=== PATIENT | female | born 1935 | race Caucasian/White ===

== ENCOUNTER → 2016-04-10 | Outpatient (CLI) | payer BC, OTHER ==
[~2016-04-10] MED LIST: ASCO1CAP3 PO; CALC600T33 PO; CHOL400T PO; CYCL0.052 OP; DILT240C75 PO; FOLI1TAB7 PO; GLYB1.257 PO; LEUC5TAB PO; LIPOZENE PO; LSN5 PO; MELA1TAB3 PO; OMEGCAP2 PO; PANT1TAB48 PO; PRED-301 PO; SIMV20TA5 PO; VITA1TAB4 PO
== END | disposition home or self-care (01) ==
LOC: C.LABMFLN 08:15
PROVIDERS: ATTEND Family Medicine
DX: E11.9 Type 2 diabetes mellitus without complications (principal)

== ENCOUNTER → 2016-04-30 | Outpatient (CLI) | payer BC, OTHER ==
[2016-04-30 13:19] LABS: BASO % 0.3 %; BASO ABS # 0.02 K/uL (0-0.2); COMPLETE YES; HEMATOCRIT 39.9 % (37-47); IG% 0.2 %; LYMPH % 17.1 %; MEAN CELL VOLUME 93.9 fL (80-100); MEAN CORPUSCULAR HEMOGLOBIN 31.3 pg (25-34); MEAN CORPUSCULAR HGB CONC 33.3 g/dl (32-36); MEAN PLATELET VOLUME 10.2 fL (7.4-10.4); MONO % 9.3 %; NEUT % 71.1 %; PLATELET COUNT 298 K/uL (130-400); RED BLOOD COUNT 4.25 M/uL (4.2-5.4); WHITE BLOOD COUNT 6.44 K/uL (4.8-10.8)
[2016-04-30 13:22] LABS: URINE APPEARANCE CLEAR (CLEAR); URINE BILIRUBIN NEG (NEG); URINE COLOR YELLOW; URINE EPITHELIAL CELL AUTO >30 /lpf (0-5); URINE NITRITE NEG (NEG); URINE PH 5.5 (4.5-7.5); URINE SPECIFIC GRAVITY 1.012 (1.000-1.030); UROBILINOGEN NEG (NEG)
[2016-04-30 13:36] LABS: ALT/SGPT 17 U/L (12-78); AMYLASE 27 U/L (25-115); AST/SGOT 14 U/L (15-37); BLOOD UREA NITROGEN 11 mg/dl (7-18); BUN/CREATININE RATIO 11.3 (10-20); CALCIUM 9.3 mg/dl (8.5-10.1); CARBON DIOXIDE 27 mmol/L (21-32); CHLORIDE 100 mmol/L (98-107); GLUCOSE 124 mg/dl (70-99); POTASSIUM 4.2 mmol/L (3.5-5.1); SODIUM 138 mmol/L (136-145)
[2016-04-30 13:40] LABS: MANUAL MICROSCOPIC REQUIRED? NO; REVIEW REQ? NO
[2016-04-30 13:44] LABS: ALB/GLOB RATIO 0.8 (0.9-2); ALKALINE PHOSPHATASE 76 U/L (45-117); CHOLESTEROL 158 mg/dl (0-200); CHOLESTEROL/HDL RATIO 2.1; HDL CHOLESTEROL 77 mg/dl; LDL CHOLESTEROL CALCULATED 60 mg/dl; TRIGLYCERIDES 107 mg/dl (0-150); VERY LOW DENSITY LIPOPROT CALC 21 mg/dl
[2016-04-30 13:48] LABS: RATIO 8.2 mcg/mg (0-30.0)
[2016-04-30 14:03] LABS: ESTIMATED AVERAGE GLUCOSE 180 mg/dl; HA1C FLAG Normal (Normal)
--- NOTE | 2016-05-07 11:05 | CODING QUERY MEDICAL NECESSITY ---
SUPPORTING DIAGNOSIS NEEDED A supporting diagnosis is required for the test/procedure performed on this patient in order for us to be reimbursed by the patient's insurance. Please provide a supporting diagnosis for the following test/procedure listed below next to the test name along with your signature. *If there is no additional diagnosis for this patient that would support the following test/procedure please document that below next to the test/procedure. Test(s)/Procedure(s) that require a supporting diagnosis: DOS 04/30 * Vitamin D DIAGNOSIS: Provider Signature: Date: Thank you Kirsty Edgar Health Information Management Once completed, please kindly fax back to [phone] For questions please call [phone]
== END | disposition home or self-care (01) ==
LOC: C.LABMFLN 07:34
PROVIDERS: ATTEND Family Medicine
DX: M85.80 Other specified disorders of bone density and structure, unspecified site (principal); E11.9 Type 2 diabetes mellitus without complications; E78.00 Pure hypercholesterolemia, unspecified; I10 Essential (primary) hypertension; R11.0 Nausea; R61 Generalized hyperhidrosis; M54.9 Dorsalgia, unspecified; E55.9 Vitamin D deficiency, unspecified

== ENCOUNTER → 2016-09-30 | Outpatient (CLI) | payer OTHER ==
[2016-09-30 13:53] LABS: ESTIMATED AVERAGE GLUCOSE 171 mg/dl; HA1C FLAG Normal (Normal)
[2016-09-30 13:54] LABS: HEMATOCRIT 40.3 % (37-47); MEAN CELL VOLUME 97.8 fL (80-100); MEAN CORPUSCULAR HEMOGLOBIN 32.3 pg (25-34); MEAN PLATELET VOLUME 10.6 fL (7.4-10.4); PLATELET COUNT 200 K/uL (130-400); RED BLOOD COUNT 4.12 M/uL (4.2-5.4); WHITE BLOOD COUNT 4.97 K/uL (4.8-10.8)
[2016-09-30 13:56] LABS: ALT/SGPT 29 U/L (12-78); BLOOD UREA NITROGEN 17 mg/dl (7-18); BUN/CREATININE RATIO 18.7 (10-20); CARBON DIOXIDE 30 mmol/L (21-32); CHLORIDE 105 mmol/L (98-107); CHOLESTEROL 198 mg/dl (0-200); CREATININE 0.92 mg/dl (0.60-1.20); GLUCOSE 110 mg/dl (70-99); POTASSIUM 4.5 mmol/L (3.5-5.1); SODIUM 140 mmol/L (136-145); TRIGLYCERIDES 104 mg/dl (0-150); VERY LOW DENSITY LIPOPROT CALC 21 mg/dl
[2016-09-30 13:59] LABS: ALKALINE PHOSPHATASE 74 U/L (45-117); AST/SGOT 18 U/L (15-37); HDL CHOLESTEROL 100 mg/dl; LDL CHOLESTEROL CALCULATED 77 mg/dl
[2016-09-30 14:17] LABS: RATIO 26.3 mcg/mg (0-30.0)
== END | disposition home or self-care (01) ==
LOC: C.LABMFLN 08:12
PROVIDERS: ATTEND Family Medicine
DX: R35.0 Frequency of micturition (principal); E11.9 Type 2 diabetes mellitus without complications; E78.00 Pure hypercholesterolemia, unspecified; M06.9 Rheumatoid arthritis, unspecified; Z51.81 Encounter for therapeutic drug level monitoring; Z79.899 Other long term (current) drug therapy

== ENCOUNTER → 2017-01-08 | Outpatient (CLI) | payer OTHER ==
[2017-01-08 13:08] LABS: BLOOD UREA NITROGEN 21 mg/dl (7-18); BUN/CREATININE RATIO 22.2 (10-20); CALCIUM 9.7 mg/dl (8.5-10.1); CARBON DIOXIDE 25 mmol/L (21-32); CHLORIDE 106 mmol/L (98-107); CREATININE 0.93 mg/dl (0.60-1.20); GLUCOSE 151 mg/dl (70-99); POTASSIUM 4.6 mmol/L (3.5-5.1); SODIUM 140 mmol/L (136-145)
[2017-01-08 13:30] LABS: ESTIMATED AVERAGE GLUCOSE 143 mg/dl; HA1C FLAG Normal (Normal)
== END | disposition home or self-care (01) ==
LOC: C.LABMFLN 07:14
PROVIDERS: ATTEND Family Medicine
DX: E11.9 Type 2 diabetes mellitus without complications (principal); E78.00 Pure hypercholesterolemia, unspecified; I10 Essential (primary) hypertension

== ENCOUNTER → 2017-04-14 | Outpatient (CLI) | payer OTHER ==
[~2017-04-14] VITALS: Ht 165.1 cm; Wt 93.4 kg
[~2017-04-14] MED LIST changes: +ASPI81TA28 PO; +CHOL1000 PO; +CYAN500T13 PO; -FOLI1TAB7 PO; +FOLI1TAB8 PO; +GLIM1TAB2 PO; +LIFI5DRO OPB; +METF1TAB53 PO; +METH2.5T PO; +PANT1TAB3 PO; -PANT1TAB48 PO
[2017-04-14 14:27] VITALS: Ht 165.1 cm; Wt 93.4 kg
[2017-04-14 15:24] LABS: BASO % 0.2 %; BASO ABS # 0.01 K/uL (0-0.2); EOS % 0.2 %; EOS ABS # 0.01 K/uL (0-0.5); HEMATOCRIT 34.9 % (37-47); HEMOGLOBIN 11.5 g/dL (12.0-16.0); IG# 0.01 K/uL (0.00-0.02); LYMPH % 10.9 %; LYMPH ABS # 0.61 K/uL (1.2-3.4); MEAN CELL VOLUME 96.4 fL (80-100); MEAN CORPUSCULAR HEMOGLOBIN 31.8 pg (25-34); MEAN PLATELET VOLUME 9.7 fL (7.4-10.4); MONO % 4.3 %; MONO ABS # 0.24 K/uL (0.11-0.59); NEUT % 84.2 %; NEUT ABS # 4.72 K/uL (1.4-6.5); PLATELET COUNT 192 K/uL (130-400); RED CELL DISTRIBUTION WIDTH CV 16.2 % (11.5-14.5); RED CELL DISTRIBUTION WIDTH SD 55.8 fL (36.4-46.3)
--- NOTE | 2017-04-14 15:30 | PAT Medication Instructions ---
Service Date Apr 14, 2017. Current Home Medication List Ascorbic Acid (Vitamin C), 1,000 MG PO QAM Aspirin (Aspirin Ec), 81 MG PO QAM Calcium Carbonate-Vitamin D (Calcium 600/Vitamin D), 1 TAB PO QAM Cholecalciferol (Vitamin D3), 1 TAB PO QPM Cyanocobalamin (Vitamin B12 500MCG), 2,500 MCG PO for PM Diltiazem Hcl Extended Release (Diltiazem Hcl), 240 MG PO QAM Folic Acid (Folvite), 1 MG PO QAM Glimepiride (Glimepiride), 1 TAB PO QAM Leucovorin Calcium (Leucovorin Calcium), 5 MG PO WK Lifitegrast (Xiidra), 1 DROP OPB BID Lisinopril (Lisinopril), 5 MG PO QAM Melatonin-Pyridoxine (Melatonin), 2 TABS PO HS PRN for PRN Metformin Hcl (Glucophage Ext Rel), 1,000 MG PO BID Methotrexate (Methotrexate), 5 TAB PO WEEKLY Macdoel-3 Fatty Acids (Fish Oil), 1 CAP PO QAM Pantoprazole (Protonix), 40 MG PO AM PRN for PRN Prednisone (Prednisone), 5 MG PO QAM Simvastatin (Zocor), 20 MG PO QPM Vitamin E (Vitamin E), 400 UNITS PO QPM Medication Instructions For Your Scheduled Surgery -Follow your prescriber's instructions: Leucovorin Calcium (Leucovorin Calcium), 5 MG PO WK Methotrexate (Methotrexate), 5 TAB PO WEEKLY - Hold the following medications 2 weeks prior to surgery: Macdoel-3 Fatty Acids (Fish Oil), 1 CAP PO QAM Vitamin E (Vitamin E), 400 UNITS PO QPM - Hold the following medications the morning of surgery: Ascorbic Acid (Vitamin C), 1,000 MG PO QAM Calcium Carbonate-Vitamin D (Calcium 600/Vitamin D), 1 TAB PO QAM Folic Acid (Folvite), 1 MG PO QAM Glimepiride (Glimepiride), 1 TAB PO QAM Metformin Hcl (Glucophage Ext Rel), 1,000 MG PO BID Lisinopril (Lisinopril), 5 MG PO QAM - Take the following medications the morning of surgery with a sip of water: Aspirin (Aspirin Ec), 81 MG PO QAM Diltiazem Hcl Extended Release (Diltiazem Hcl), 240 MG PO QAM Lifitegrast (Xiidra), 1 DROP OPB BID Pantoprazole (Protonix), 40 MG PO AM PRN for PRN (if needed) Prednisone (Prednisone), 5 MG PO QAM - Take the following medications as scheduled the night before surgery: Cholecalciferol (Vitamin D3), 1 TAB PO QPM Cyanocobalamin (Vitamin B12 500MCG), 2,500 MCG PO for PM Lifitegrast (Xiidra), 1 DROP OPB BID Melatonin-Pyridoxine (Melatonin), 2 TABS PO HS PRN for PRN (if needed) Metformin Hcl (Glucophage Ext Rel), 1,000 MG PO BID Simvastatin (Zocor), 20 MG PO QPM Pantoprazole (Protonix), 40 MG PO AM PRN for PRN (if needed) If you have any questions please call us at [phone] or [phone] or [phone]
[2017-04-14 16:12] LABS: ALBUMIN 3.4 gm/dl (3.4-5.0); CALCIUM 9.2 mg/dl (8.5-10.1); POTASSIUM 4.5 mmol/L (3.5-5.1)
--- NOTE | 2017-07-01 08:41 | CODING QUERY NO DIAGNOSIS ---
TREATMENT RENDERED WITHOUT A DIAGNOSIS : 37 To promote full compliance with coding requirements relating to patient care, physician participation is requested in all cases of insurance administrative assistant uncertainty. Please assist us with providing a diagnosis/symptom for the test(s) below: A diagnosis/symptom was not documented on your Order. A valid diagnosis/symptom is required to bill all insurances. Please remember that we are unable to code a diagnosis of rule out, probable, possible, questionable, or suspected. Tests that require a diagnosis: DOS: 04/14/17 * CBC WITH AUTO DIFFER DIAGNOSIS: * PARTIAL RENAL PROFILE DIAGNOSIS: * PTT DIAGNOSIS: * PROTHROMBIN TIME PRO DIAGNOSIS: * ALBUMIN DIAGNOSIS: * HEMOGLOBIN A1C DIAGNOSIS: * UA CLEAN CATCH CULTURE DIAGNOSIS: Provider Signature: Date: Thank you Amy Sanz Health Information Management Once completed, please kindly fax back to [phone] For questions please call [phone]
== END | disposition home or self-care (01) ==
LOC: C.LAB 07:00 → EDSTATUS 05-13 11:30
PROVIDERS: ATTEND Orthopaedic Surgery Sports Medicine
DX: Z01.818 Encounter for other preprocedural examination (principal)

== ENCOUNTER → 2017-04-14 | Outpatient (CLI) | payer OTHER ==
[2017-04-14 13:49] LABS: HEMOGLOBIN A1C 7.9 % (4.5-5.6)
[2017-04-14 14:23] LABS: ALBUMIN 3.4 gm/dl (3.4-5.0); ALT/SGPT 26 U/L (12-78); BLOOD UREA NITROGEN 14 mg/dl (7-18); CALCIUM 9.2 mg/dl (8.5-10.1); CARBON DIOXIDE 29 mmol/L (21-32); CHOLESTEROL 177 mg/dl (0-200); CREATININE 0.82 mg/dl (0.60-1.20); GLUCOSE 108 mg/dl (70-99); SODIUM 140 mmol/L (136-145)
[2017-04-14 14:25] LABS: ALKALINE PHOSPHATASE 57 U/L (45-117); AST/SGOT 16 U/L (15-37); LDL CHOLESTEROL CALCULATED 80 mg/dl; TOTAL PROTEIN 6.7 gm/dl (6.4-8.2)
== END | disposition home or self-care (01) ==
LOC: C.LABMFLN 07:14
PROVIDERS: ATTEND Family Medicine
DX: E11.9 Type 2 diabetes mellitus without complications (principal); E78.00 Pure hypercholesterolemia, unspecified; I10 Essential (primary) hypertension

== ENCOUNTER → 2017-04-22 | Outpatient (CLI) | payer OTHER ==
[~2017-04-22] MED LIST changes: -CHOL400T PO; -CYCL0.052 OP; -GLYB1.257 PO; -LIPOZENE PO
== END | disposition home or self-care (01) ==
LOC: C.LABMFLN 07:14
PROVIDERS: ATTEND Physician Assistant
DX: Z00.8 Encounter for other general examination (principal)

== ENCOUNTER 2020-12-18 12:06 | Inpatient (IN) ==
[2020-12-18] MEDS ORDERED: SODIUM CHLORIDE 0.9% 1000ML 1,000 ML IV SCH (12:30)
--- NOTE | 2020-12-18 12:47 | XRay Report ---
XR chest 1V portable CLINICAL HISTORY: SEPSIS TECHNIQUE: Single frontal radiograph of the chest was obtained. Comparison: None available at the time of this dictation. FINDINGS: No lines and tubes are seen. Calcified aortic knob is seen. The lungs are clear. No evidence of pleur al effusion or pneumothorax. IMPRESSION: No acute chest disease. ACT 112: Negative or not required by law. Electronically signed by: Davin Grant M.D. 12/18/2020 12:46 PM
[2020-12-18 13:05] LABS: Basophils # (auto) 0.01 K/uL (0-0.2); Basophils % (auto) 0.1 %; Eosinophils # (auto) 0.01 K/uL (0-0.5); Eosinophils % (auto) 0.1 %; Hematocrit (blood only) 40.8 % (37-47); Hemoglobin 14.1 g/dL (12.0-16.0); Immature Granulocytes # (auto) 0.05 K/uL (0.00-0.02); Immature Granulocytes % (auto) 0.4 %; Lymphocytes # (auto) 1.12 K/uL (1.2-3.4); Lymphocytes % (auto) 8.4 %; Mean Corpuscular Hemoglobin 31.3 pg (25-34); Mean Corpuscular Hgb Conc 34.6 g/dL (32-36); Mean Corpuscular Volume 90.7 fL (80-100); Mean Platelet Volume 11.3 fL (7.4-10.4); Monocytes # (auto) 1.02 K/uL (0.11-0.59); Monocytes % (auto) 7.7 %; Neutrophils # (auto) 11.09 K/uL (1.4-6.5); Neutrophils % (auto) 83.3 %; Platelet Count 318 K/uL (130-400); RDW Coefficient of Variation 15.6 % (11.5-14.5); RDW Standard Deviation 51.5 fL (36.4-46.3)
[2020-12-18 13:15] LABS: Partial Thromboplastin Ratio 0.8; Partial Thromboplastin Time 21.4 Seconds (21.0-31.0)
[2020-12-18 13:27] LABS: Alanine Aminotransferase 23 U/L (12-78); Aspartate Aminotransferase 10 U/L (15-37); BUN Creatinine Ratio 33.2 (10-20); Blood Urea Nitrogen 40 mg/dl (7-18); Calcium 9.2 mg/dl (8.5-10.1); Carbon Dioxide 23 mmol/L (21-32); Chloride 97 mmol/L (98-107); Est GFR (African American) 47.9 ml/min; Est GFR (Non-African American) 41.3 ml/min; Glucose 346 mg/dl (70-99); Magnesium 2.2 mg/dl (1.8-2.4); Potassium 4.5 mmol/L (3.5-5.1); Sodium 131 mmol/L (136-145)
--- NOTE | 2020-12-18 13:31 | Emergency Department Note ---
History of Present Illness General Chief complaint: Weakness Stated complaint: WEAKNESS/CONFUSION/REFERRED BY Time Seen by Provider: 12/18/20 12:21 Source: patient and family (Daughter at bedside) History of Present Illness Provider complaint: Weakness confusion Onset (ago): week(s) 1 Associated symptoms: + confusion, + fever/chills, + malaise and + weakness; no chest pain, no cough, no headaches, no nausea/vomiting or no shortness of breath 85-year-old female presents emergency department with daughter at bedside for weakness and confusion. Patient's daughter reports her symptoms are gone for last week. Patient's daughter states that she is concerned that the patient cannot take care of herself at home and they went to go see their PCP at [facility] practice and were referred to the emergency department. The daughter states that the patient is weak on her feet. The patient denies any recent fal ls. Patient was recently admitted to [facility] for Covid. Home Medications Medication Instructions Recorded Confirmed Type blood sugar diagnostic (OneTouch #50 ea 08/13/18 12/18/20 Rx Ultra Blue Test Strip) cyanocobalamin (vitamin B-12) 500 500 mcg PO DAILY #90 tab 08/13/18 12/18/20 Rx mcg tablet methotrexate sodium 2.5 mg tablet 12.5 mg PO WEEKLY #60 tab 08/13/18 12/18/20 Rx vitamin E succinate 268 mg (400 400 units PO DAILY #90 tab 08/13/18 12/18/20 Rx unit) tablet aspirin 81 mg tablet 81 mg PO DAILY tab 11/16/18 12/18/20 History omega-3 acid ethyl esters 1 gram 1 cap PO DAILY cap 11/16/18 12/18/20 History capsule cane, single pronged #1 ea 11/17/18 12/18/20 Rx blood-glucose meter (OneTouch #1 ea 12/07/18 12/18/20 Rx Ultra2 Meter) conjugated estrogens 0.625 mg/gram 1 appln PV DAILY #30 gm 06/22/19 12/18/20 Rx vaginal cream (Premarin) leucovorin calcium 5 mg tablet 10 mg PO WEEKLY #24 tab 09/22/19 12/18/20 Rx lisinopril 5 mg tablet 5 mg PO DAILY #90 tab 12/08/19 12/18/20 Rx metformin 1,000 mg tablet 1,000 mg PO .COMPLEX #180 tab 02/23/20 12/18/20 Rx mirabegron 25 mg tablet,extended 25 mg PO DAILY #90 tab 05/03/20 12/18/20 Rx release 24 hr (Myrbetriq) prednisone 5 mg tablet 5 mg PO DAILY #90 tab 06/08/20 12/18/20 Rx ascorbate calcium (vitamin C) 500 500 mg PO DAILY #30 tab 06/18/20 12/18/20 Rx mg tablet diltiazem HCl 240 mg 240 mg PO DAILY #90 cap 06/22/20 12/18/20 Rx capsule,extended release 24 hr hydrocodone 5 mg-acetaminophen 325 1 tab PO Q6H PRN #100 tab 09/13/20 12/18/20 Rx mg tablet simvastatin 20 mg tablet 20 mg PO DAILY #90 tab 09/13/20 12/18/20 Rx folic acid 1 mg tablet 1 mg PO DAILY #90 tab 11/12/20 12/18/20 Rx glimepiride 4 mg tablet 4 mg PO DAILY #90 tab 11/12/20 12/18/20 Rx calcium carbonate 500 mg calcium 500 mg PO DAILY 12/18/20 12/18/20 History (1,250 mg) tablet (Calcium 500) denosumab 60 mg/mL subcutaneous 60 mg SUBCUT .COMPLEX ml 12/18/20 12/18/20 History syringe (Prolia) diclofenac sodium 1 % topical gel 2 g TOPICAL TID PRN g 12/18/20 12/18/20 History (Arthritis Pain (diclofenac)) omega-3 fatty acids 1,000 mg 1,000 mg PO DAILY 12/18/20 12/18/20 History capsule (Fish Oil Concentrate) Allergies Allergy/AdvReac Type Severity Reaction Status Date / Time No Known Drug Allergies Allergy Verified 12/18/20 09:32 Past Med/Surg History Medical History Chronic low back pain Chronic steroid use COVID-19 virus infection Dyslipidemia Dyspnea on exertion Fatigue 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 therapy Pneumonia due to COVID-19 virus Psoriatic arthropathy Rheumatoid arthritis Shingles Surgical History H/O breast surgery H/O lumpectomy H/O nasal septoplasty History of appendectomy History of back surgery History of cataract surgery History of foot surgery History of tubal ligation Hx of cholecystectomy Status post repair of nerve Family History Daughter Diabetes Father Diabetes Mother Hypertension Arthritis Brother Diabetes Uncle Colorectal cancer Denies family history of Ovarian cancer Prostate cancer Myocardial infarction Breast cancer Social History Smoking Status: Former smoker Age Started Using Tobacco: 24; Age Quit Using Tobacco: 52; packs per day: 1; Years Smoked: 28; Second Hand Exposure: Yes; Hx Alcohol Use: No Hx Substance Use: No (Patient is using Hydrocodone-Acetaminophen) Preferred Language: Hebrew Communication Ability: Effective Visual Impairment: Limited Hearing Ability: Normal Child Protective Investigator Required: No marital status: / Current Living Situation: Alone Current Living Situation Comment: [facility] current occupational status: retired Feels Safe at Home: Yes Childhood Exposure to Second-Hand Smoke: No caffeine: Yes (coffee) during the past year weight has: remained stable Dental Care, Regularly: No Physical Activity Frequency: Does not Exercise Seatbelt Use: always Sunscreen Use: No Do you think of yourself as: straight/heterosexual Review of Systems A total of 10 systems reviewed and were otherwise negative Physical Exam Vital Signs Vital Signs - 24 hr 12/18/20 12:07 12/18/20 12:13 12/18/20 12:22 Temperature 36.4 C L Temperature Source Temporal Artery Scan Pulse Rate 83 65 Pulse Rate [Apical] Respiratory Rate 18 24 Blood Pressure 132/64 Blood Pressure [Right Arm] Blood Pressure Mean 86 Blood Pressure Mean [Right Arm] Pulse Oximetry 96 98 Oxygen Delivery Method Room Air Room Air Room Air Sepsis Recent Fever Within 48 Hours No Sepsis New/Unexplained Change in Mental Status No Sepsis Action Taken by Nursing No Action Required 12/18/20 13:45 12/18/20 13:48 12/18/20 14:45 Temperature Temperature Source Pulse Rate Pulse Rate [Apical] 67 95 H 65 Respiratory Rate 24 24 21 Blood Pressure Blood Pressure [Right Arm] 150/66 H 150/66 H 143/83 H Blood Pressure Mean Blood Pressure Mean [Right Arm] 94 94 103 Pulse Oximetry 97 97 96 Oxygen Delivery Method Room Air Room Air Room Air Sepsis Recent Fever Within 48 Hours Sepsis New/Unexplained Change in Mental Status Sepsis Action Taken by Nursing Physical Exam GENERAL: She is oriented to person, place, and time. She appears well-developed and well-nourished. She does not appear distressed. HENT: Exam performed. -Head: Normocephalic and atraumatic. -Right Ear: External ear normal. No mastoid tenderness. -Left Ear: External ear normal. No mastoid tenderness. -Mouth/Throat: The oropharynx is clear and moist. No trismus in the jaw. No dental abscesses or uvula swelling. No oropharyngeal exudate or tonsillar abscesses. EYES: Conjunctivae and EOM are normal. Pupils are equal, round, and reactive to light. Right eye exhibits no discharge. Left eye exhibits no discharge. No scleral icterus. NECK: Normal range of motion. Neck supple. No JVD present. No spinous process tenderness present. No carotid bruit present. No rigidity. No tracheal deviation and normal range of motion present. No Brudzinski's sign and no Kernig's sign noted. CV: Normal rate, regular rhythm, normal heart sounds and intact distal pulses. There is no peripheral edema. Palpable radial pulses bue. PULM/CHEST: Effort normal and breath sounds normal. No respiratory distress. No stridor. She has no wheezes. She has no rales. -Chest Wall: She exhibits no tenderness. ABD: The abdomen is soft. Bowel sounds are normal. She has no distension. No mass is present. There is no tenderness. There is no rebound, no guarding, no Buitrago's sign and no tenderness at McBurney's point. Rovsig negative MUSC/SKEL: Normal range of motion. There is no peripheral edema, tenderness or deformity. LYMPH: No cervical adenopathy. NEURO: She is alert and oriented to person, place, and time. She has normal strength. No cranial nerve deficit or sensory deficit. GCS eye subscore is 4. GCS verbal subscore is 5. GCS motor subscore is 6. Cerebellar tests wnl. SKIN: Skin is warm and dry. She is not diaphoretic. PSYCH: She has a normal mood and affect. Behavior is normal. Judgment and thought content normal. Course Course 1221: The patient was evaluated in room B8. A complete history and physical exam was performed Cardiac monitoring: An order was placed for continuous cardiac monitoring. The monitor shows a rate of 80 with sinus rhythm 1531: Vital signs stable. Labs are lactic acid of 3.9. Urinalysis does appear to be infected. Patient treated with 30 cc/kg bolus based off her ideal body weight. [facility] Imaging shows no pulmonary embolus and CT of the head is within normal limits. Dr. Marie's team notified. Administered Medications Sodium Chloride (Nss) 500 mls @ 125 mls/hr IV .Q4H JOLENE Stop: 01/17/21 13:44 Last Admin: 12/18/20 15:28 Dose: 125 mls/hr Documented by: [id number] Discontinued Medications Sodium Chloride (Nss 1000ml) 1,000 mls @ 999 mls/hr IV .Q1H1M ONE Stop: 12/18/20 14:32 Last Admin: 12/18/20 13:43 Dose: 999 mls/hr Documented by: [id number] Ceftriaxone Sodium (Rocephin) 1,000 mg in 50 mls @ 100 mls/hr IV NOW STA Stop: 12/18/20 14:44 Last Admin: 12/18/20 14:32 Dose: 100 mls/hr Documented by: [id number] Ioversol (Optiray 320 125ml) 120 ml IV ONCE ONE Stop: 12/18/20 15:00 Last Admin: 12/18/20 14:52 Dose: 120 ml Documented by: [id number] Medical Decision Making Laboratory Data Result diagrams: 12/18/20 12:49 12/18/20 12:49 Lab Results 12/18/20 12/18/20 12/18/20 Range/Units 12:49 12:49 12:49 WBC 13.30 H (4.8-10.8) K/uL RBC 4.50 (4.2-5.4) M/uL Hgb 14.1 (12.0-16.0) g/dL Hct 40.8 (37-47) % MCV 90.7 (80-100) fL MCH 31.3 (25-34) pg MCHC 34.6 (32-36) g/dL RDW Std Deviation 51.5 H (36.4-46.3) fL RDW Coeff of Jeff 15.6 H (11.5-14.5) % Plt Count 318 (130-400) K/uL MPV 11.3 H (7.4-10.4) fL Immature Gran % (Auto) 0.4 % Neut % (Auto) 83.3 % Lymph % (Auto) 8.4 % [place] % (Auto) 7.7 % Eos % (Auto) 0.1 % Baso % (Auto) 0.1 % Neut # (Auto) 11.09 H (1.4-6.5) K/uL Lymph # (Auto) 1.12 L (1.2-3.4) K/uL [place] # (Auto) 1.02 H (0.11-0.59) K/uL Eos # (Auto) 0.01 (0-0.5) K/uL Baso # (Auto) 0.01 (0-0.2) K/uL Immature Gran # (Auto) 0.05 H (0.00-0.02) K/uL PT (9.0-12.0) Seconds INR (0.9-1.1) APTT (21.0-31.0) Seconds PTT Ratio VBG pH (7.36-7.41) VBG pCO2 (38-50) mmHg VBG pO2 mmHg VBG HCO3 mmol/L VBG O2 Saturation % VBG Base Excess mEq/L Barometric Pressure mm/Hg Sodium 131 L (136-145) mmol/L Potassium 4.5 (3.5-5.1) mmol/L Chloride 97 L (98-107) mmol/L Carbon Dioxide 23 (21-32) mmol/L Anion Gap 11.0 (3-11) BUN 40 H (7-18) mg/dl Creatinine 1.21 H (0.6-1.2) mg/dl Est Cr Clr Drug Dosing Not Reportable Est GFR ( Amer) 47.9 ml/min Est GFR (Non-Af Amer) 41.3 ml/min BUN/Creatinine Ratio 33.2 H (10-20) Glucose 346 H* (70-99) mg/dl Lactate (0.4-2.0) mmol/L Calcium 9.2 (8.5-10.1) mg/dl Magnesium 2.2 (1.8-2.4) mg/dl Total Bilirubin 0.9 (0.2-1) mg/dl AST 10 L (15-37) U/L ALT 23 (12-78) U/L Alkaline Phosphatase 65 (45-117) U/L Troponin I < 0.015 (0-0.045) ng/ml Total Protein 7.0 (6.4-8.2) gm/dl Albumin 3.0 L (3.4-5.0) gm/dl Globulin 4.0 (2.5-4.0) gm/dl Albumin/Globulin Ratio 0.8 L (0.9-2) Beta-Hydroxybutyric Acd 0.97 (0.2-2.81) mg/dl Procalcitonin < 0.05 (0-0.5) ng/ml Urine Color Urine Appearance (Clear) Urine pH (4.5-7.5) Ur Specific [place] (1.000-1.030) Urine Protein (Negative) Urine Glucose (UA) (Negative) Urine Ketones (Negative) Urine Blood (Negative) Urine Nitrite (Negative) Urine Bilirubin (Negative) Urine Urobilinogen (Negative) Ur Leukocyte Esterase (Negative) Urine WBC (Auto) (0-5) /hpf Urine RBC (Auto) (0-4) /hpf U Hyaline Cast (Auto) (0-5) /lpf U Epithel Cells (Auto) (0-5) /lpf Urine Bacteria (Auto) (Negative) Urine Yeast 12/18/20 12/18/20 12/18/20 Range/Units 12:49 12:49 13:16 WBC (4.8-10.8) K/uL RBC (4.2-5.4) M/uL Hgb (12.0-16.0) g/dL Hct (37-47) % MCV (80-100) fL MCH (25-34) pg MCHC (32-36) g/dL RDW Std Deviation (36.4-46.3) fL RDW Coeff of Jeff (11.5-14.5) % Plt Count (130-400) K/uL MPV (7.4-10.4) fL Immature Gran % (Auto) % Neut % (Auto) % Lymph % (Auto) % [place] % (Auto) % Eos % (Auto) % Baso % (Auto) % Neut # (Auto) (1.4-6.5) K/uL Lymph # (Auto) (1.2-3.4) K/uL [place] # (Auto) (0.11-0.59) K/uL Eos # (Auto) (0-0.5) K/uL Baso # (Auto) (0-0.2) K/uL Immature Gran # (Auto) (0.00-0.02) K/uL PT 10.0 (9.0-12.0) Seconds INR 1.0 (0.9-1.1) APTT 21.4 (21.0-31.0) Seconds PTT Ratio 0.8 VBG pH 7.43 H (7.36-7.41) VBG pCO2 38 (38-50) mmHg VBG pO2 33 mmHg VBG HCO3 25 mmol/L VBG O2 Saturation 63.0 % VBG Base Excess 0.4 mEq/L Barometric Pressure 734.3 mm/Hg Sodium (136-145) mmol/L Potassium (3.5-5.1) mmol/L Chloride (98-107) mmol/L Carbon Dioxide (21-32) mmol/L Anion Gap (3-11) BUN (7-18) mg/dl Creatinine (0.6-1.2) mg/dl Est Cr Clr Drug Dosing Est GFR ( Amer) ml/min Est GFR (Non-Af Amer) ml/min BUN/Creatinine Ratio (10-20) Glucose (70-99) mg/dl Lactate 3.9 H* (0.4-2.0) mmol/L Calcium (8.5-10.1) mg/dl Magnesium (1.8-2.4) mg/dl Total Bilirubin (0.2-1) mg/dl AST (15-37) U/L ALT (12-78) U/L Alkaline Phosphatase (45-117) U/L Troponin I (0-0.045) ng/ml Total Protein (6.4-8.2) gm/dl Albumin (3.4-5.0) gm/dl Globulin (2.5-4.0) gm/dl Albumin/Globulin Ratio (0.9-2) Beta-Hydroxybutyric Acd (0.2-2.81) mg/dl Procalcitonin (0-0.5) ng/ml Urine Color Urine Appearance (Clear) Urine pH (4.5-7.5) Ur Specific [place] (1.000-1.030) Urine Protein (Negative) Urine Glucose (UA) (Negative) Urine Ketones (Negative) Urine Blood (Negative) Urine Nitrite (Negative) Urine Bilirubin (Negative) Urine Urobilinogen (Negative) Ur Leukocyte Esterase (Negative) Urine WBC (Auto) (0-5) /hpf Urine RBC (Auto) (0-4) /hpf U Hyaline Cast (Auto) (0-5) /lpf U Epithel Cells (Auto) (0-5) /lpf Urine Bacteria (Auto) (Negative) Urine Yeast 12/18/20 Range/Units 13:17 WBC (4.8-10.8) K/uL RBC (4.2-5.4) M/uL Hgb (12.0-16.0) g/dL Hct (37-47) % MCV (80-100) fL MCH (25-34) pg MCHC (32-36) g/dL RDW Std Deviation (36.4-46.3) fL RDW Coeff of Jeff (11.5-14.5) % Plt Count (130-400) K/uL MPV (7.4-10.4) fL Immature Gran % (Auto) % Neut % (Auto) % Lymph % (Auto) % [place] % (Auto) % Eos % (Auto) % Baso % (Auto) % Neut # (Auto) (1.4-6.5) K/uL Lymph # (Auto) (1.2-3.4) K/uL [place] # (Auto) (0.11-0.59) K/uL Eos # (Auto) (0-0.5) K/uL Baso # (Auto) (0-0.2) K/uL Immature Gran # (Auto) (0.00-0.02) K/uL PT (9.0-12.0) Seconds INR (0.9-1.1) APTT (21.0-31.0) Seconds PTT Ratio VBG pH (7.36-7.41) VBG pCO2 (38-50) mmHg VBG pO2 mmHg VBG HCO3 mmol/L VBG O2 Saturation % VBG Base Excess mEq/L Barometric Pressure mm/Hg Sodium (136-145) mmol/L Potassium (3.5-5.1) mmol/L Chloride (98-107) mmol/L Carbon Dioxide (21-32) mmol/L Anion Gap (3-11) BUN (7-18) mg/dl Creatinine (0.6-1.2) mg/dl Est Cr Clr Drug Dosing Est GFR ( Amer) ml/min Est GFR (Non-Af Amer) ml/min BUN/Creatinine Ratio (10-20) Glucose (70-99) mg/dl Lactate (0.4-2.0) mmol/L Calcium (8.5-10.1) mg/dl Magnesium (1.8-2.4) mg/dl Total Bilirubin (0.2-1) mg/dl AST (15-37) U/L ALT (12-78) U/L Alkaline Phosphatase (45-117) U/L Troponin I (0-0.045) ng/ml Total Protein (6.4-8.2) gm/dl Albumin (3.4-5.0) gm/dl Globulin (2.5-4.0) gm/dl Albumin/Globulin Ratio (0.9-2) Beta-Hydroxybutyric Acd (0.2-2.81) mg/dl Procalcitonin (0-0.5) ng/ml Urine Color Yellow Urine Appearance Cloudy A (Clear) Urine pH 5.0 (4.5-7.5) Ur Specific [place] 1.024 (1.000-1.030) Urine Protein Trace H (Negative) Urine Glucose (UA) 2+ H (Negative) Urine Ketones Negative (Negative) Urine Blood Trace H (Negative) Urine Nitrite Negative (Negative) Urine Bilirubin Negative (Negative) Urine Urobilinogen Negative (Negative) Ur Leukocyte Esterase 2+ H (Negative) Urine WBC (Auto) >30 H (0-5) /hpf Urine RBC (Auto) 5-10 H (0-4) /hpf U Hyaline Cast (Auto) 1-5 (0-5) /lpf U Epithel Cells (Auto) >30 H (0-5) /lpf Urine Bacteria (Auto) 1+ H (Negative) Urine Yeast Not Reportable Imaging Data Radiologist's Impression: Chest CTA 12/18/20 12:22 CT ANGIOGRAM OF THE CHEST CLINICAL HISTORY: Dyspnea with exertion. Covid. COMPARISON STUDY: Chest x-ray dated 12/18/2020. TECHNIQUE: Following the IV administration of 120 cc of Optiray 320, CT angiogram of the chest was performed from the upper abdomen to the thoracic inlet utilizing the pulmonary embolus protocol. Images are reviewed in the axial, sagittal, and coronal planes. 3-D MIPS images are created and assessed. IV contrast was administered without complication. A dose lowering technique was utilized adhering to the principles of ALARA. CT DOSE: 1293.44 mGy.cm FINDINGS: Thyroid: The thyroid gland is markedly enlarged and heterogeneous consistent with goiter. Thoracic aorta: There is atherosclerotic calcification of the thoracic aorta, which is normal in caliber and demonstrates standard 3-vessel arch anatomy. No dissection is seen. Pulmonary vasculature: The main pulmonary arteries are dilated suggesting pulmonary artery hypertension. There are no filling defects identified in main, lobar, or proximal segmental pulmonary branches to suggest pulmonary embolus. Evaluation of the peripheral branches is significantly compromised by motion artifact. Heart: The heart is enlarged and without pericardial effusion. The coronary arteries are densely calcified. Lungs and pleural spaces: Evaluation of the lung parenchyma is significantly degraded by motion artifact. Mild patchy groundglass consolidation is seen throughout both lungs. The trachea and central airways are clear. No pleural effusion is identified. There are scattered calcified granulomas. Mediastinum: There are scattered subcentimeter mediastinal lymph nodes. Lesly: Clear. Axillae: There is no axillary lymphadenopathy. Upper abdomen: The gallbladder is surgically absent. There is a small to moderate hiatal hernia. Skeletal structures: The skeletal structures are osteopenic. Spondylotic change is noted throughout the thoracic spine. There is a chronic compression deformity of L1. No lytic or blastic bony lesions are seen. IMPRESSION: 1. Motion compromised examination. 2. There is no evidence of central pulmonary embolus in the main, lobar, or proximal segmental pulmonary arteries. 3. Cardiomegaly. 4. Multifocal groundglass consolidation is seen throughout both lungs, consistent with the reported history of a viral pneumonia. Radiographic follow- up to resolution is recommended. 5. Thyroid goiter. 6. Additional findings as above. ACT 112: Negative or not required by law. Electronically signed by: Ponce La M.D. 12/18/2020 3:21 PM Chest X-Ray 12/18/20 12:22 XR chest 1V portable CLINICAL HISTORY: SEPSIS TECHNIQUE: Single frontal radiograph of the chest was obtained. Comparison: None available at the time of this dictation. FINDINGS: No lines and tubes are seen. Calcified aortic knob is seen. The lungs are clear. No evidence of pleural effusion or pneumothorax. IMPRESSION: No acute chest disease. ACT 112: Negative or not required by law. Electronically signed by: Davin Grant M.D. 12/18/2020 12:[address] 12/18/20 12:23 CT SCAN OF THE BRAIN WITHOUT IV CONTRAST CLINICAL HISTORY: Generalized weakness. COMPARISON STUDY: No priors. TECHNIQUE: Unenhanced axial CT scan of the brain is performed from the vertex to the skull base. A dose lowering technique was utilized adhering to the principles of ALARA. FINDINGS: Brain parenchyma: There are age-related involutional changes noting moderate subcortical and periventricular microangiopathic change. There is no hemorrhage, mass effect, or evidence of acute territorial ischemia by CT criteria. Rebollar- white matter differentiation is preserved. No extra-axial fluid collection is seen. Ventricles, sulci, cisterns: Prominent secondary to involutional change. Intracranial vasculature: There is atherosclerotic calcification of the cavernous carotid and vertebral arteries. Calvarium: Unremarkable. Sinuses and mastoids: The visualized paranasal sinuses are clear. The mastoid air cells are well pneumatized. Orbits: The bony orbits are grossly intact. There are bilateral ocular lens implants. IMPRESSION: There is no hemorrhage, mass effect, or evidence of acute territorial ischemia by CT criteria. ACT 112: Negative or not required by law. Electronically signed by: Ponce La M.D. 12/18/2020 3:00 PM ECG Data Indication: + weakness Rate (beats per minute): 66 Rhythm: + normal sinus ECG Intervals/blocks: + Normal QRS, + Normal [place] and + Normal QT-c ECG ST segments: + Normal ST segments ECG Findings: + LVH MDM Narrative Vital signs stable. Labs are lactic acid of 3.9. Urinalysis does appear to be infected. Patient treated with 30 cc/kg bolus based off her ideal body weight. [facility] Imaging shows no pulmonary embolus and CT of the head is within normal limits. Dr. Marie's team notified. Impression & Plan Acute UTI, Sepsis Discharge Plan Visit Data Chief Complaint: Weakness Stated Complaint: WEAKNESS/CONFUSION/REFERRED BY ED Provider: Asif Senior Discharge Problem: Acute UTI, Sepsis Patient Disposition: Admitted As Inpatient Forms Stand Alone Forms: My [facility] Prescriptions Prescriptions: No Action (DME) blood-glucose meter [OneTouch Ultra2 Meter] [facility] See Dose Instructions .ROUTE .MEDSUPPLY Qty: 1 RF: 0 lisinopril 5 mg tablet 5 mg PO DAILY Qty: 90 RF: 3 metformin 1,000 mg tablet 1,000 mg PO .COMPLEX Qty: 180 RF: 3 Myrbetriq 25 mg tablet extended release 24 hr 25 mg PO DAILY Qty: 90 RF: 3 prednisone 5 mg tablet 5 mg PO DAILY Qty: 90 RF: 3 diltiazem HCl 240 mg capsule,extended release 24hr 240 mg PO DAILY Qty: 90 RF: 3 folic acid 1 mg tablet 1 mg PO DAILY Qty: 90 RF: 3 glimepiride 4 mg tablet 4 mg PO DAILY Qty: 90 RF: 3 ascorbate calcium (vitamin C) 500 mg tablet 500 mg PO DAILY Qty: 30 RF: 0 calcium carbonate [Calcium 500] 500 mg calcium (1,250 mg) tablet 500 mg PO DAILY RF: 0 Prolia 60 mg/mL syringe 60 mg subcut .COMPLEX RF: 0 diclofenac sodium [Arthritis Pain (diclofenac)] 1 % gel 2 g topical TID PRNRF: 0 omega-3 fatty acids [Fish Oil Concentrate] 1,000 mg capsule 1,000 mg PO DAILY RF: 0 (DME) cane, single pronged Qty: 1 RF: 0 Premarin 0.625 mg/gram cream 1 appln PV DAILY Qty: 30 RF: 11 hydrocodone-acetaminophen 5-325 mg tablet 1 tab PO Q6H PRN (Reason: pain) Qty: 100 RF: 0 simvastatin 20 mg tablet 20 mg PO DAILY Qty: 90 RF: 3 leucovorin calcium 5 mg tablet 10 mg PO WEEKLY Qty: 24 RF: 3 (DME) OneTouch Ultra Blue Test Strip strip See Dose Instructions .ROUTE .MEDSUPPLY Qty: 50 RF: 5 cyanocobalamin (vitamin B-12) 500 mcg tablet 500 mcg PO DAILY Qty: 90 RF: 3 methotrexate sodium 2.5 mg tablet 12.5 mg PO WEEKLY Qty: 60 RF: 3 vitamin E succinate 400 unit tablet 400 units PO DAILY Qty: 90 RF: 3 aspirin 81 mg tablet 81 mg PO DAILY RF: 0 omega-3 acid ethyl esters 1 gram capsule 1 cap PO DAILY RF: 0 Referrals Referrals: Ponce Winter MD [Primary Care Provider] -
[2020-12-18] MEDS ORDERED: SODIUM CHLORIDE 0.9% 1000ML 1,000 ML IV ONE (13:32)
[2020-12-18] MEDS ORDERED: SODIUM CHLORIDE 0.9% 1000ML 500 ML IV ONE (13:32)
[2020-12-18 13:37] LABS: Albumin Globulin Ratio 0.8 (0.9-2); Alkaline Phosphatase 65 U/L (45-117); Bilirubin,Total 0.9 mg/dl (0.2-1); Troponin I < 0.015 ng/ml (0-0.045)
[2020-12-18 13:40] LABS: Base Excess VBG 0.4 mEq/L; pH VBG 7.43 (7.36-7.41)
[2020-12-18 13:44] LABS: Appearance Urine Cloudy (Clear); Bacteria Urine Automated 1+ (Negative); Bilirubin Urine Negative (Negative); Blood Urine Trace (Negative); Color Urine Yellow; Epithelial Cell Urine Auto >30 /lpf (0-5); Glucose Urine UA 2+ (Negative); Ketones Urine Negative (Negative); Leukocyte Esterase Urine 2+ (Negative); Nitrite Urine Negative (Negative); Protein Urine Trace (Negative); Specific Gravity Urine 1.024 (1.000-1.030); Urobilinogen Urine Negative (Negative); WBC Urine Automated >30 /hpf (0-5)
[2020-12-18 13:52] LABS: Beta-Hydroxybutyrate 0.97 mg/dl (0.2-2.81)
[2020-12-18] MEDS ORDERED: cefTRIAXone SODIUM 1,000 MG/50 ML BAG IV STA (14:15)
[2020-12-18] MEDS ORDERED: OPTIRAY 320 125ml IV ONE (14:59)
--- NOTE | 2020-12-18 15:01 | CT Scan Report ---
CT SCAN OF THE BRAIN WITHOUT IV CONTRAST CLINICAL HISTORY: Generalized weakness. COMPARISON STUDY: No priors. TECHNIQUE: Unenhanced axial CT scan of the brain is performed from the vertex to the skull base. A do se lowering technique was utilized adhering to the principles of ALARA. FINDINGS: Brain parenchyma: There are age-related involutional changes noting moderate subcortical and periven tricular microangiopathic change. There is no hemorrhage, mass effect, or evidence of acute territori al ischemia by CT criteria. Rebollar-white matter differentiation is preserved. No extra-axial fluid checo ection is seen. Ventricles, sulci, cisterns: Prominent secondary to involutional change. Intracranial vasculature: There is atherosclerotic calcification of the cavernous carotid and vertebr al arteries. Calvarium: Unremarkable. Sinuses and mastoids: The visualized paranasal sinuses are clear. The mastoid air cells are well pneu matized. Orbits: The bony orbits are grossly intact. There are bilateral ocular lens implants. IMPRESSION: There is no hemorrhage, mass effect, or evidence of acute territorial ischemia by CT jos de anda. ACT 112: Negative or not required by law. Electronically signed by: Ponce La M.D. 12/18/2020 3:00 PM
--- NOTE | 2020-12-18 15:22 | CT Scan Report ---
CT ANGIOGRAM OF THE CHEST CLINICAL HISTORY: Dyspnea with exertion. Covid. COMPARISON STUDY: Chest x-ray dated 12/18/2020. TECHNIQUE: Following the IV administration of 120 cc of Optiray 320, CT angiogram of the chest was pe rformed from the upper abdomen to the thoracic inlet utilizing the pulmonary embolus protocol. Images are reviewed in the axial, sagittal, and coronal planes. 3-D MIPS images are created and assessed. I V contrast was administered without complication. A dose lowering technique was utilized adhering to the principles of ALARA. CT DOSE: 1293.44 mGy.cm FINDINGS: Thyroid: The thyroid gland is markedly enlarged and heterogeneous consistent with goiter. Thoracic aorta: There is atherosclerotic calcification of the thoracic aorta, which is normal in lew nitesh and demonstrates standard 3-vessel arch anatomy. No dissection is seen. Pulmonary vasculature: The main pulmonary arteries are dilated suggesting pulmonary artery hypertensi on. There are no filling defects identified in main, lobar, or proximal segmental pulmonary branches to suggest pulmonary embolus. Evaluation of the peripheral branches is significantly compromised by m otion artifact. Heart: The heart is enlarged and without pericardial effusion. The coronary arteries are densely calc ified. Lungs and pleural spaces: Evaluation of the lung parenchyma is significantly degraded by motion artif act. Mild patchy groundglass consolidation is seen throughout both lungs. The trachea and central air ways are clear. No pleural effusion is identified. There are scattered calcified granulomas. Mediastinum: There are scattered subcentimeter mediastinal lymph nodes. Lesly: Clear. Axillae: There is no axillary lymphadenopathy. Upper abdomen: The gallbladder is surgically absent. There is a small to moderate hiatal hernia. Skeletal structures: The skeletal structures are osteopenic. Spondylotic change is noted throughout t he thoracic spine. There is a chronic compression deformity of L1. No lytic or blastic bony lesions a re seen. IMPRESSION: 1. Motion compromised examination. 2. There is no evidence of central pulmonary embolus in the main, lobar, or proximal segmental pulmon wanda arteries. 3. Cardiomegaly. 4. Multifocal groundglass consolidation is seen throughout both lungs, consistent with the reported h istory of a viral pneumonia. Radiographic follow-up to resolution is recommended. 5. Thyroid goiter. 6. Additional findings as above. ACT 112: Negative or not required by law. Electronically signed by: Ponce La M.D. 12/18/2020 3:21 PM
[2020-12-18] MEDS: SODIUM CHLORIDE 0.9% 500 ML IV SCH ×2 (15:28→20:04)
--- NOTE | 2020-12-18 18:31 | History & Physical Report ---
Date of Service December 18, 2020 Assessment & Plan (1) Acute UTI: Plan: 85yo Female PMH COVID positive 12/07 previously vaccinated, DM2 HTN HLD RA presents to hospital with altered mental status likely secondary to UTI. Acute UTI -UA +1 bacteria +2 leukocyte Esterase -Urine culture pending -blood culture pending -Lactate 3.7 -received 1000mg ceftriaxone in ED, continue ceftriaxone 2 days -admit to obs -continue to trend cbc bmp Pneumonia due to COVID-19 -PCR COVID positive -ordered isolation precautions -sat 95% on room air Confusion -continue to monitor, likely 2/2 to UTI and COVID -CT head no acute hemorrhage ischemia -CTA chest = cardiomegaly, multifocal groundglass consolidation in both lungs consistent with viral PNA, thyroid goiter, no central pulmonary embolism -CXR no acute chest disease Ambulatory Dysfunction -order fall precautions -order PT/OT -likely need placement for rehab DM2 -glucose 346, may be part due to home steroids and medication noncompliance secondary to confusion -hold home medication -continue insulin 5U Lantus BID -correction factor 45 Novolog, carb ratio 15 Rheumatoid Arthritis -continue home medication methotrexate, prednisone Chronic Low Back Pain -continue home medication hydrocodone acetominophen HTN -continue diltiazem, lisinopril HLD -continue simvastatin Overactive Bladder -continue mirabegron GERD -continue protonix FENa: card consistent Code Status: full DVT PPX: heparin 5000U 2x daily PT/OT: ordered (2) Pneumonia due to COVID-19 virus: (3) Confusion: (4) Ambulatory dysfunction: (5) Type 2 diabetes mellitus with peripheral neuropathy: (6) Rheumatoid arthritis: (7) Chronic low back pain: History of Present Illness Chief Complaint: Altered Mental Status Primary Care Provider: Ponce Winter MD 85yo Female PMH COVID positive 12/07 previously vaccinated, DM2 HTN HLD RA presents to hospital with altered mental status, sent here by her PCP Dr. Winter. Per patient she understands she was hospitalized last week for COVID pneumonia, states the steroids she was given have not helped her, states she is septic and has fluid in her lungs but she will feel better now that she is in the hospital. Patient denies any fever, chills, nausea, vomitting, SOB, urinary incontinence or pain, she has a good appetite. Patient states she lives alone in a [facility] and requires no assistance, ambulates with a cane. While laying in bed, patient decided to sit on the side of the bed to eat dinner and had extreme difficulty moving her legs to position herself and to remain seated upright. Patient blamed the bed for being unstable and states she does not have any difficulty walking, states her last fall was 2 months ago. Per patient's daughter, the patient fell out of bed 12/05 and was not able to get up, was brought to [facility] and diagnosed with PNA, she was discharged home on antibiotics. On 12/07 the patient began having delirium and was brought back to the ER where she was diagnosed with COVID, started on steroids, she did not require oxygen, was discharged on 12/09 with home steroids. Patient's family checks in on her multiple times per day, state her confusion has gotten worse, she is unable to manage or take her medication regularly, still has great difficulty walking by herself and gets easily short of breath, has been sleeping more often, and may not be drinking water as regularly, though they note no change in appetite. They state patient has occasional urinary incontinence at baseline. Patient's daughter believes her symptoms may be due to a UTI as her current confusion is similar to her previous UTI. The family scheduled an appointment with Dr. Winter to evaluate patient for confusion, after which she was sent here. Allergies Allergy/AdvReac Type Severity Reaction Status Date / Time No Known Drug Allergies Allergy Verified 12/18/20 16:00 Home Medications Medication Instructions Recorded Confirmed Type blood sugar diagnostic (SaborstudioTouch #50 ea 08/13/18 12/18/20 Rx Ultra Blue Test Strip) cyanocobalamin (vitamin B-12) 500 500 mcg PO DAILY #90 tab 08/13/18 12/18/20 Rx mcg tablet methotrexate sodium 2.5 mg tablet 12.5 mg PO WEEKLY #60 tab 08/13/18 12/18/20 Rx vitamin E succinate 268 mg (400 400 units PO DAILY #90 tab 08/13/18 12/18/20 Rx unit) tablet cane, single pronged #1 ea 11/17/18 12/18/20 Rx blood-glucose meter (SaborstudioTouch #1 ea 12/07/18 12/18/20 Rx Ultra2 Meter) lisinopril 5 mg tablet 5 mg PO DAILY #90 tab 12/08/19 12/18/20 Rx mirabegron 25 mg tablet,extended 25 mg PO DAILY #90 tab 05/03/20 12/18/20 Rx release 24 hr (Myrbetriq) prednisone 5 mg tablet 5 mg PO DAILY #90 tab 06/08/20 12/18/20 Rx ascorbate calcium (vitamin C) 500 500 mg PO DAILY #30 tab 06/18/20 12/18/20 Rx mg tablet diltiazem HCl 240 mg 240 mg PO DAILY #90 cap 06/22/20 12/18/20 Rx capsule,extended release 24 hr hydrocodone 5 mg-acetaminophen 325 1 tab PO Q6H PRN #100 tab 09/13/20 12/18/20 Rx mg tablet simvastatin 20 mg tablet 20 mg PO DAILY #90 tab 09/13/20 12/18/20 Rx folic acid 1 mg tablet 1 mg PO DAILY #90 tab 11/12/20 12/18/20 Rx glimepiride 4 mg tablet 4 mg PO DAILY #90 tab 11/12/20 12/18/20 Rx aspirin 81 mg tablet,delayed 81 mg PO DAILY 12/18/20 12/18/20 History release (Aspirin Low Dose) calcium phosphate 600 mg-vit D3 1 tab PO DAILY 12/18/20 12/18/20 History 500 unit-magnesium oxide 50 mg tablet cholecalciferol (vitamin D3) 25 25 mcg PO DAILY 12/18/20 12/18/20 History mcg (1,000 unit) capsule (Vitamin D3) conjugated estrogens 0.625 mg/gram 1 applic PV DAILY 12/18/20 12/18/20 History vaginal cream (Premarin) denosumab 60 mg/mL subcutaneous 60 mg SUBCUT .COMPLEX ml 12/18/20 12/18/20 History syringe (Prolia) diclofenac sodium 1 % topical gel 2 g TOPICAL TID PRN g 12/18/20 12/18/20 History (Arthritis Pain (diclofenac)) leucovorin calcium 5 mg tablet 5 mg PO WEEKLY 12/18/20 12/18/20 History lifitegrast 5 % eye drops in a 0 drp OPHTHALMIC (EYE) UD 12/18/20 12/18/20 History dropperette (Xiidra) metformin 1,000 mg tablet 1,000 mg PO BIDM 12/18/20 12/18/20 History omega-3 fatty acids 1,000 mg 1,000 mg PO DAILY 12/18/20 12/18/20 History capsule (Fish Oil Concentrate) pantoprazole 40 mg tablet,delayed 40 mg PO DAILY 12/18/20 12/18/20 History release (Protonix) Past Med/Surg History Medical History Chronic low back pain Chronic steroid use COVID-19 virus infection Dyslipidemia Dyspnea on exertion Fatigue 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 therapy Pneumonia due to COVID-19 virus Psoriatic arthropathy Rheumatoid arthritis Shingles Surgical History H/O breast surgery H/O lumpectomy H/O nasal septoplasty History of appendectomy History of back surgery History of cataract surgery History of foot surgery History of tubal ligation Hx of cholecystectomy Status post repair of nerve Family History Daughter Diabetes Father Diabetes Mother Hypertension Arthritis Brother Diabetes Uncle Colorectal cancer Denies family history of Ovarian cancer Prostate cancer Myocardial infarction Breast cancer Social History Smoking Status: Former smoker Age Started Using Tobacco: 24; Age Quit Using Tobacco: 52; packs per day: 1; Years Smoked: 28; Second Hand Exposure: No; Do You Dip or Chew Tobacco: No; Tobacco Cessation Education Requested by Patient: No Hx Alcohol Use: No Hx Substance Use: No Preferred Language: Irish Communication Ability: Effective Visual Impairment: Limited Hearing Ability: Normal Roll Inspector Required: No Beliefs That Will Affect Care: None marital status: / Current Living Situation: Alone Current Living Situation Comment: Lives in [facility] in [place]. current occupational status: retired Other Information That Helps Us Care for You: No Feels Safe at Home: Yes Safety Concerns: Feels Safe At This Time Childhood Exposure to Second-Hand Smoke: No caffeine: Yes (coffee) during the past year weight has: remained stable Dental Care, Regularly: No Physical Activity Frequency: Does not Exercise Seatbelt Use: always Sunscreen Use: No Do you think of yourself as: straight/heterosexual Assistive Devices: Cane, Denture - Upper, Denture - Lower and Glasses Assistive Devices Comment: Lower partial. Review of Systems Review of Systems: Negative fever chills Negative headache dizziness Negative chest pain palpitations SOB Negative nausea vomitting diarrhea constipation Negative numbness tingling rash swelling Physical Exam Physical Exam: General: Well appearing, age appropriate Heart: RRR, +S1 S2, no murmurs/gallops/rubs Lungs: cta b/l, no wheezes/rales/rhonchi Abd: soft, NT/ND, +BS Extremities: no swelling, no rashes, no clubbing/cyanosis HEENT: PERRLA, EOMI, normocephalic atraumatic Psych:euthymic affect, calm, cooperative Skin: warm, dry, intact Results & Data Results & Data ([facility]) Vital Signs (Past 12 Hours) Vital Signs Temp Pulse Pulse Resp BP BP Pulse Ox 12/18/20 16:39 70 18 119/83 95 12/18/20 14:45 65 21 143/83 H 96 12/18/20 13:48 95 H 24 150/66 H 97 12/18/20 13:45 67 24 150/66 H 97 12/18/20 12:22 65 24 98 12/18/20 12:13 36.4 C L 83 18 132/64 96 Laboratory Results Laboratory Results WBC 13.30 K/uL (4.8-10.8) H 12/18/20 12:49 RBC 4.50 M/uL (4.2-5.4) 12/18/20 12:49 Hgb 14.1 g/dL (12.0-16.0) 12/18/20 12:49 Hct 40.8 % (37-47) 12/18/20 12:49 MCV 90.7 fL (80-100) 12/18/20 12:49 MCH 31.3 pg (25-34) 12/18/20 12:49 MCHC 34.6 g/dL (32-36) 12/18/20 12:49 RDW Std Deviation 51.5 fL (36.4-46.3) H 12/18/20 12:49 RDW Coeff of Jeff 15.6 % (11.5-14.5) H 12/18/20 12:49 Plt Count 318 K/uL (130-400) 12/18/20 12:49 MPV 11.3 fL (7.4-10.4) H 12/18/20 12:49 Immature Gran % (Auto) 0.4 % 12/18/20 12:49 Neut % (Auto) 83.3 % 12/18/20 12:49 Lymph % (Auto) 8.4 % 12/18/20 12:49 Gregory % (Auto) 7.7 % 12/18/20 12:49 Eos % (Auto) 0.1 % 12/18/20 12:49 Baso % (Auto) 0.1 % 12/18/20 12:49 Neut # (Auto) 11.09 K/uL (1.4-6.5) H 12/18/20 12:49 Lymph # (Auto) 1.12 K/uL (1.2-3.4) L 12/18/20 12:49 Gregory # (Auto) 1.02 K/uL (0.11-0.59) H 12/18/20 12:49 Eos # (Auto) 0.01 K/uL (0-0.5) 12/18/20 12:49 Baso # (Auto) 0.01 K/uL (0-0.2) 12/18/20 12:49 Immature Gran # (Auto) 0.05 K/uL (0.00-0.02) H 12/18/20 12:49 PT 10.0 Seconds (9.0-12.0) 12/18/20 12:49 INR 1.0 (0.9-1.1) 12/18/20 12:49 APTT 21.4 Seconds (21.0-31.0) 12/18/20 12:49 PTT Ratio 0.8 12/18/20 12:49 VBG pH 7.43 (7.36-7.41) H 12/18/20 13:16 VBG pCO2 38 mmHg (38-50) 12/18/20 13:16 VBG pO2 33 mmHg 12/18/20 13:16 VBG HCO3 25 mmol/L 12/18/20 13:16 VBG O2 Saturation 63.0 % 12/18/20 13:16 VBG Base Excess 0.4 mEq/L 12/18/20 13:16 Barometric Pressure 734.3 mm/Hg 12/18/20 13:16 Sodium 131 mmol/L (136-145) L 12/18/20 12:49 Potassium 4.5 mmol/L (3.5-5.1) 12/18/20 12:49 Chloride 97 mmol/L (98-107) L 12/18/20 12:49 Carbon Dioxide 23 mmol/L (21-32) 12/18/20 12:49 Anion Gap 11.0 (3-11) 12/18/20 12:49 BUN 40 mg/dl (7-18) H 12/18/20 12:49 Creatinine 1.21 mg/dl (0.6-1.2) H 12/18/20 12:49 Est Cr Clr Drug Dosing Not Reportable 12/18/20 12:49 Est GFR ( Amer) 47.9 ml/min 12/18/20 12:49 Est GFR (Non-Af Amer) 41.3 ml/min 12/18/20 12:49 BUN/Creatinine Ratio 33.2 (10-20) H 12/18/20 12:49 Glucose 346 mg/dl (70-99) H* 12/18/20 12:49 Lactate 3.7 mmol/L (0.4-2.0) H* 12/18/20 15:23 Calcium 9.2 mg/dl (8.5-10.1) 12/18/20 12:49 Magnesium 2.2 mg/dl (1.8-2.4) 12/18/20 12:49 Total Bilirubin 0.9 mg/dl (0.2-1) 12/18/20 12:49 AST 10 U/L (15-37) L 12/18/20 12:49 ALT 23 U/L (12-78) 12/18/20 12:49 Alkaline Phosphatase 65 U/L (45-117) 12/18/20 12:49 Troponin I < 0.015 ng/ml (0-0.045) 12/18/20 12:49 Total Protein 7.0 gm/dl (6.4-8.2) 12/18/20 12:49 Albumin 3.0 gm/dl (3.4-5.0) L 12/18/20 12:49 Globulin 4.0 gm/dl (2.5-4.0) 12/18/20 12:49 Albumin/Globulin Ratio 0.8 (0.9-2) L 12/18/20 12:49 Beta-Hydroxybutyric Acd 0.97 mg/dl (0.2-2.81) 12/18/20 12:49 Procalcitonin < 0.05 ng/ml (0-0.5) 12/18/20 12:49 Urine Color Yellow 12/18/20 13:17 Urine Appearance Cloudy (Clear) A 12/18/20 13:17 Urine pH 5.0 (4.5-7.5) 12/18/20 13:17 Ur Specific [place] 1.024 (1.000-1.030) 12/18/20 13:17 Urine Protein Trace (Negative) H 12/18/20 13:17 Urine Glucose (UA) 2+ (Negative) H 12/18/20 13:17 Urine Ketones Negative (Negative) 12/18/20 13:17 Urine Blood Trace (Negative) H 12/18/20 13:17 Urine Nitrite Negative (Negative) 12/18/20 13:17 Urine Bilirubin Negative (Negative) 12/18/20 13:17 Urine Urobilinogen Negative (Negative) 12/18/20 13:17 Ur Leukocyte Esterase 2+ (Negative) H 12/18/20 13:17 Urine WBC (Auto) >30 /hpf (0-5) H 12/18/20 13:17 Urine RBC (Auto) 5-10 /hpf (0-4) H 12/18/20 13:17 U Hyaline Cast (Auto) 1-5 /lpf (0-5) 12/18/20 13:17 U Epithel Cells (Auto) >30 /lpf (0-5) H 12/18/20 13:17 Urine Bacteria (Auto) 1+ (Negative) H 12/18/20 13:17 Urine Yeast Not Reportable 12/18/20 13:17 COVID-19 Eval Order Covid19 at [facility] 12/18/20 16:11 SARS-CoV-2 (PCR) POSITIVE (Negative) A* 12/18/20 16:11 Impressions Chest CTA 12/18/20 12:22 CT ANGIOGRAM OF THE CHEST CLINICAL HISTORY: Dyspnea with exertion. Covid. COMPARISON STUDY: Chest x-ray dated 12/18/2020. TECHNIQUE: Following the IV administration of 120 cc of Optiray 320, CT ang iogram of the chest was performed from the upper abdomen to the thoracic inlet utilizing the pulmonary embolus protocol. Images are reviewed in the axial, sagittal, and coronal planes. 3-D MIPS images are created and assessed. IV contrast was administered without complication. A dose lowering technique was utilized adhering to the principles of ALARA. CT DOSE: 1293.44 mGy.cm FINDINGS: Thyroid: The thyroid gland is markedly enlarged and heterogeneous consistent with goiter. Thoracic aorta: There is atherosclerotic calcification of the thoracic aorta, which is normal in caliber and demonstrates standard 3-vessel arch anatomy. No dissection is seen. Pulmonary vasculature: The main pulmonary arteries are dilated suggesting pulmonary artery hypertension. There are no filling defects identified in main, lobar, or proximal segmental pulmonary branches to suggest pulmonary embolus. Evaluation of the peripheral branches is significantly compromised by motion artifact. Heart: The heart is enlarged and without pericardial effusion. The coronary arteries are densely calcified. Lungs and pleural spaces: Evaluation of the lung parenchyma is significantly degraded by motion artifact. Mild patchy groundglass consolidation is seen throughout both lungs. The trachea and central airways are clear. No pleural effusion is identified. There are scattered calcified granulomas. Mediastinum: There are scattered subcentimeter mediastinal lymph nodes. Lesly: Clear. Axillae: There is no axillary lymphadenopathy. Upper abdomen: The gallbladder is surgically absent. There is a small to moderate hiatal hernia. Skeletal structures: The skeletal structures are osteopenic. Spondylotic change is noted throughout the thoracic spine. There is a chronic compression deformity of L1. No lytic or blastic bony lesions are seen. IMPRESSION: 1. Motion compromised examination. 2. There is no evidence of central pulmonary embolus in the main, lobar, or proximal segmental pulmonary arteries. 3. Cardiomegaly. 4. Multifocal groundglass consolidation is seen throughout both lungs, consistent with the reported history of a viral pneumonia. Radiographic follow- up to resolution is recommended. 5. Thyroid goiter. 6. Additional findings as above. ACT 112: Negative or not required by law. Electronically signed by: Ponce La M.D. 12/18/2020 3:21 PM Chest X-Ray 12/18/20 12:22 XR chest 1V portable CLINICAL HISTORY: SEPSIS TECHNIQUE: Single frontal radiograph of the chest was obtained. Comparison: None available at the time of this dictation. FINDINGS: No lines and tubes are seen. Calcified aortic knob is seen. The lungs are clear. No evidence of pleural effusion or pneumothorax. IMPRESSION: No acute chest disease. ACT 112: Negative or not required by law. Electronically signed by: Davin Grant M.D. 12/18/2020 12:[address] 12/18/20 12:23 CT SCAN OF THE BRAIN WITHOUT IV CONTRAST CLINICAL HISTORY: Generalized weakness. COMPARISON STUDY: No priors. TECHNIQUE: Unenhanced axial CT scan of the brain is performed from the vertex to the skull base. A dose lowering technique was utilized adhering to the principles of ALARA. FINDINGS: Brain parenchyma: There are age-related involutional changes noting moderate subcortical and periventricular microangiopathic change. There is no hemorrhage, mass effect, or evidence of acute territorial ischemia by CT criteria. Rebollar- white matter differentiation is preserved. No extra-axial fluid collection is seen. Ventricles, sulci, cisterns: Prominent secondary to involutional change. Intracranial vasculature: There is atherosclerotic calcification of the cavernous carotid and vertebral arteries. Calvarium: Unremarkable. Sinuses and mastoids: The visualized paranasal sinuses are clear. The mastoid air cells are well pneumatized. Orbits: The bony orbits are grossly intact. There are bilateral ocular lens implants. IMPRESSION: There is no hemorrhage, mass effect, or evidence of acute territorial ischemia by CT criteria. ACT 112: Negative or not required by law. Electronically signed by: Ponce La M.D. 12/18/2020 3:00 PM Medications Administered Current Inpatient Medications Sodium Chloride (Nss 1000ml) 1,000 mls @ 80 mls/hr IV .[id number] JOLENE Stop: 01/17/21 12:29 Sodium Chloride (Nss) 500 mls @ 125 mls/hr IV .Q4H JOLENE Stop: 01/17/21 13:44 Last Admin: 12/18/20 15:28 Dose: 125 mls/hr Documented by: Code Status & VTE Plan Code Status Full VTE Prophylaxis Plan VTE Prophylaxis will be ordered: Yes Supervising Physician Co-Signing Physician Notes I personally saw and examined the patient. I verified all philip points and agree with resident physician Dr Malika Yoo ([id number]) with the following exceptions and/or additions: 85 year old fully vaccinated female with recent COVID-19 pneumonia diagnosed Dec 07 presents with worsening fatigue and confusion O/E No acute distress, well nourished, A&Ox3, HS 1+2, no murmurs, Chest CTAB, Abdomen SNT, BS normal, no lateralizing neurological exam. A/P COVID-19 pneumonia - already had dexamethasone course for this, no further treatment required as on room air. Suspect her confusion and ambulatory dysfunction are mainly related to this however. Possible UTI - although only symptom of this would be confusion, Given diabetes and worsening mental status although most likely related to COVID would opt to treat pending urine cultures Elevated lactate - does not appear to be related to sepsis, patient is not acidotic, will hold metformin as a possible cause of this and treat her diabetes with insulin as above Resident Activity Tracking Resident Involvement: Resident Care Provided Care Provided: Adult Hospital Medicine
[2020-12-18] MEDS ORDERED: DICLOFENAC SOD 1% GEL 100 GM TUBE EXT PRN (20:02)
[2020-12-18] MEDS ORDERED: HYDROCODONE/ACETAMOPHEN 5/325MG TAB PO PRN (20:02)
[2020-12-18] MEDS: INSULIN ASPART 100 UNITS/ML 3 ML PEN SC SCH (21:26)
[2020-12-18] MEDS: HEPARIN SOD 5,000 UNIT/0.5 ML VIAL SQ SCH (21:27)
[2020-12-18] MEDS: INSULIN GLARGINE SOLOSTAR 100 UNITS/ML 3 ML PEN SC SCH (21:28)
[2020-12-18] MEDS ORDERED: Nursing to Pharmacy Communication SCH (21:45)
[2020-12-18] MEDS: MIRABEGRON ER 25 MG TAB PO SCH (21:57)
[2020-12-19 06:18] LABS: Eosinophils # (auto) 0.02 K/uL (0-0.5); Eosinophils % (auto) 0.2 %; Hematocrit (blood only) 38.7 % (37-47); Immature Granulocytes # (auto) 0.05 K/uL (0.00-0.02); Immature Granulocytes % (auto) 0.6 %; Lymphocytes # (auto) 1.15 K/uL (1.2-3.4); Lymphocytes % (auto) 13.5 %; Mean Corpuscular Hemoglobin 31.4 pg (25-34); Mean Corpuscular Hgb Conc 33.6 g/dL (32-36); Mean Corpuscular Volume 93.5 fL (80-100); Mean Platelet Volume 11.3 fL (7.4-10.4); Monocytes # (auto) 0.69 K/uL (0.11-0.59); Monocytes % (auto) 8.1 %; Neutrophils # (auto) 6.63 K/uL (1.4-6.5); Neutrophils % (auto) 77.6 %; Platelet Count 233 K/uL (130-400); RDW Coefficient of Variation 15.5 % (11.5-14.5); RDW Standard Deviation 52.9 fL (36.4-46.3); Red Blood Count 4.14 M/uL (4.2-5.4); White Blood Count 8.54 K/uL (4.8-10.8)
[2020-12-19 06:51] LABS: BUN Creatinine Ratio 31.7 (10-20); Calcium 8.4 mg/dl (8.5-10.1); Creatinine Clr Calc Pharmacy 54.3 ml/min; Est GFR (Non-African American) 68.2 ml/min
[2020-12-19] MEDS: CHOLECALCIFEROL 1,000 UNITS 25 MCG TAB PO SCH (07:35)
[2020-12-19] MEDS: ASCORBIC ACID 500 MG TAB PO SCH (07:35)
[2020-12-19] MEDS: CYANOCOBALAMIN 500 MCG TABLET (VITAMIN B-12) PO SCH (07:35)
[2020-12-19] MEDS: dilTIAZem HCL 240 MG CAPCR PO SCH (07:35)
[2020-12-19] MEDS: PANTOprazole 40 MG TAB PO SCH (07:35)
[2020-12-19] MEDS: predniSONE 5 MG TAB PO SCH (07:36)
[2020-12-19] MEDS: FOLIC ACID 1 MG TAB PO SCH (07:36)
[2020-12-19] MEDS: SIMVASTATIN 20 MG TAB PO SCH (07:36)
[2020-12-19] MEDS: lisinopril 5 MG TAB PO SCH (07:37)
[2020-12-19] MEDS: OMEGA-3 (PURIFIED FISH OIL) 1 GM CAP PO SCH (07:37)
[2020-12-19] MEDS: TOCOPHERYL, DL-ALPHA 400 UNITS 180 MG CAP PO SCH (07:37)
[2020-12-19] MEDS: HEPARIN SOD 5,000 UNIT/0.5 ML VIAL SQ SCH ×2 (07:38→21:20)
[2020-12-19] MEDS ORDERED: [UNRECOGNIZED DRUG - OTHER] PO SCH (09:00)
[2020-12-19] MEDS ORDERED: CALCIUM PO SCH (09:00)
[2020-12-19] MEDS ORDERED: SIMVASTATIN 20 MG TAB PO SCH (09:00)
[2020-12-19] MEDS ORDERED: MIRABEGRON ER 25 MG TAB PO SCH (09:00)
[2020-12-19] MEDS: INSULIN GLARGINE SOLOSTAR 100 UNITS/ML 3 ML PEN SC SCH ×2 (09:31→21:18)
[2020-12-19] MEDS: INSULIN ASPART 100 UNITS/ML 3 ML PEN SC SCH ×4 (09:32→21:18)
--- NOTE | 2020-12-19 11:03 | Billing Data ---
Date of Service December 18, 2020 Coding Level of Care Code INT OBSERVATION CARE 52M LVL 2
--- NOTE | 2020-12-19 11:27 | Hospitalist Progress Note ---
Date of Service December 19, 2020 Assessment & Plan (1) Acute UTI: Plan: 85yo Female PMH COVID positive 12/07 previously vaccinated, DM2 HTN HLD RA presents to hospital with altered mental status likely secondary to UTI. Acute UTI -UA +1 bacteria +2 leukocyte Esterase -Urine culture: preliminary is Pseudomonas species, will change to Cefepime q12, stop Rocephin -blood culture: no growth - change to full admission, too weak to go home, needs therapy and more IV fl uids BEATA, dehydration - received 3 liters of fluid in the ED, eating and drinking better, not great - give 500cc more fluid today - Cr improved to 0.8, making urine Pneumonia due to COVID-19 -PCR COVID positive -initial positive test was 12/07 at [facility] -no hypoxia, no need for dexamethasone can come out of isolation on Thursday 12/21 Confusion -likely due to dehydration, BEATA, UTI, recent COVID infection, much better today, ate breakfast, oriented -CT head no acute hemorrhage ischemia -CTA chest = cardiomegaly, multifocal groundglass consolidation in both lungs consistent with viral PNA, thyroid goiter, no central pulmonary embolism -CXR no acute chest disease Ambulatory Dysfunction -order fall precautions -order PT/OT -likely need placement for rehab DM2 -glucose 346, may be part due to home steroids and medication noncompliance secondary to confusion -hold home medication -continue insulin 5U Lantus BID -correction factor 45 Novolog, carb ratio 15 sugars much better today Rheumatoid Arthritis -continue home medication methotrexate, prednisone Chronic Low Back Pain -continue home medication hydrocodone acetominophen HTN -continue diltiazem, lisinopril HLD -continue simvastatin Overactive Bladder -continue mirabegron GERD -continue protonix FENa: card consistent Code Status: full DVT PPX: heparin 5000U 2x daily PT/OT: ordered (2) Pneumonia due to COVID-19 virus: (3) Confusion: (4) Ambulatory dysfunction: (5) Type 2 diabetes mellitus with peripheral neuropathy: (6) Rheumatoid arthritis: (7) Chronic low back pain: Admission and Anticipated Discharge Date Admission Date: December 18, 2020 Subjective patient doing better, she is eating better this morning she is alert and oriented Cr is improved, she is stable on room air, no fever urine culture growing Pseudomonas species, no growth on blood culture spoke with her daughter, she confirms she had COVID on 12/07, was admitted to [facility], had been sick for a few days prior she was discharged to home without need for oxygen she was weak, not eating or drinking well, not able to get around apartment Review of Systems Review of Systems: All systems reviewed & are unremarkable except as noted in Subjective Physical Exam Physical Exam: General: well developed, well nourished, elderly female, no distress Neck: supple, trachea midline, normal thyroid Lungs: clear to auscultation bilaterally, normal respiratory effort, no accessory muscle use, no distress Heart: regular S1 and S2, no murmur, peripheral pulses normal, capillary refill normal, no edema Abdomen: soft, NT, ND, + BS, no hepatomegaly, normal to percussion Extremities: normal in appearance, no cyanosis, no petechiae, strength is diminished Neuro: awake, cooperative, moves all extremities, no focal motor deficits, CN II-XII intact, sensation in extremities intact, normal speech Skin: warm, dry, no rash, normal turgor Psych: Awake, alert oriented x 3, euthymic affect Results & Data Results & Data ([facility]) Vital Signs (Past 12 Hours) Vital Signs Temp Pulse Resp BP Pulse Ox 12/19/20 07:28 36.4 C L 65 16 118/66 95 12/19/20 00:17 36.4 C L 72 14 135/63 94 Laboratory Results Laboratory Results - last 24 hr 12/18/20 12/18/20 12/18/20 12:49 12:49 12:49 WBC 13.30 H RBC 4.50 Hgb 14.1 Hct 40.8 MCV 90.7 MCH 31.3 MCHC 34.6 RDW Std Deviation 51.5 H RDW Coeff of Jeff 15.6 H Plt Count 318 MPV 11.3 H Immature Gran % (Auto) 0.4 Neut % (Auto) 83.3 Lymph % (Auto) 8.4 [place]hin % (Auto) 7.7 Eos % (Auto) 0.1 Baso % (Auto) 0.1 Neut # (Auto) 11.09 H Lymph # (Auto) 1.12 L [place]hin # (Auto) 1.02 H Eos # (Auto) 0.01 Baso # (Auto) 0.01 Immature Gran # (Auto) 0.05 H PT INR APTT PTT Ratio VBG pH VBG pCO2 VBG pO2 VBG HCO3 VBG O2 Saturation VBG Base Excess Barometric Pressure Sodium 131 L Potassium 4.5 Chloride 97 L Carbon Dioxide 23 Anion Gap 11.0 BUN 40 H Creatinine 1.21 H Est Cr Clr Drug Dosing Not Reportable Est GFR ( Amer) 47.9 Est GFR (Non-Af Amer) 41.3 BUN/Creatinine Ratio 33.2 H Glucose 346 H* POC Glucose Lactate Calcium 9.2 Magnesium 2.2 Total Bilirubin 0.9 AST 10 L ALT 23 Alkaline Phosphatase 65 Troponin I < 0.015 Total Protein 7.0 Albumin 3.0 L Globulin 4.0 Albumin/Globulin Ratio 0.8 L Beta-Hydroxybutyric Acd 0.97 Procalcitonin < 0.05 Urine Color Urine Appearance Urine pH Ur Specific Darrow Urine Protein Urine Glucose (UA) Urine Ketones Urine Blood Urine Nitrite Urine Bilirubin Urine Urobilinogen Ur Leukocyte Esterase Urine WBC (Auto) Urine RBC (Auto) U Hyaline Cast (Auto) U Epithel Cells (Auto) Urine Bacteria (Auto) Urine Yeast COVID-19 Eval Order SARS-CoV-2 (PCR) 12/18/20 12/18/20 12/18/20 12:49 12:49 13:16 WBC RBC Hgb Hct MCV MCH MCHC RDW Std Deviation RDW Coeff of Jeff Plt Count MPV Immature Gran % (Auto) Neut % (Auto) Lymph % (Auto) [place] % (Auto) Eos % (Auto) Baso % (Auto) Neut # (Auto) Lymph # (Auto) [place] # (Auto) Eos # (Auto) Baso # (Auto) Immature Gran # (Auto) PT 10.0 INR 1.0 APTT 21.4 PTT Ratio 0.8 VBG pH 7.43 H VBG pCO2 38 VBG pO2 33 VBG HCO3 25 VBG O2 Saturation 63.0 VBG Base Excess 0.4 Barometric Pressure 734.3 Sodium Potassium Chloride Carbon Dioxide Anion Gap BUN Creatinine Est Cr Clr Drug Dosing Est GFR ( Amer) Est GFR (Non-Af Amer) BUN/Creatinine Ratio Glucose POC Glucose Lactate 3.9 H* Calcium Magnesium Total Bilirubin AST ALT Alkaline Phosphatase Troponin I Total Protein Albumin Globulin Albumin/Globulin Ratio Beta-Hydroxybutyric Acd Procalcitonin Urine Color Urine Appearance Urine pH Ur Specific Darrow Urine Protein Urine Glucose (UA) Urine Ketones Urine Blood Urine Nitrite Urine Bilirubin Urine Urobilinogen Ur Leukocyte Esterase Urine WBC (Auto) Urine RBC (Auto) U Hyaline Cast (Auto) U Epithel Cells (Auto) Urine Bacteria (Auto) Urine Yeast COVID-19 Eval Order SARS-CoV-2 (PCR) 12/18/20 12/18/20 12/18/20 13:17 15:23 16:11 WBC RBC Hgb Hct MCV MCH MCHC RDW Std Deviation RDW Coeff of Jeff Plt Count MPV Immature Gran % (Auto) Neut % (Auto) Lymph % (Auto) [place] % (Auto) Eos % (Auto) Baso % (Auto) Neut # (Auto) Lymph # (Auto) [place] # (Auto) Eos # (Auto) Baso # (Auto) Immature Gran # (Auto) PT INR APTT PTT Ratio VBG pH VBG pCO2 VBG pO2 VBG HCO3 VBG O2 Saturation VBG Base Excess Barometric Pressure Sodium Potassium Chloride Carbon Dioxide Anion Gap BUN Creatinine Est Cr Clr Drug Dosing Est GFR ( Amer) Est GFR (Non-Af Amer) BUN/Creatinine Ratio Glucose POC Glucose Lactate 3.7 H* Calcium Magnesium Total Bilirubin AST ALT Alkaline Phosphatase Troponin I Total Protein Albumin Globulin Albumin/Globulin Ratio Beta-Hydroxybutyric Acd Procalcitonin Urine Color Yellow Urine Appearance Cloudy A Urine pH 5.0 Ur Specific Darrow 1.024 Urine Protein Trace H Urine Glucose (UA) 2+ H Urine Ketones Negative Urine Blood Trace H Urine Nitrite Negative Urine Bilirubin Negative Urine Urobilinogen Negative Ur Leukocyte Esterase 2+ H Urine WBC (Auto) >30 H Urine RBC (Auto) 5-10 H U Hyaline Cast (Auto) 1-5 U Epithel Cells (Auto) >30 H Urine Bacteria (Auto) 1+ H Urine Yeast Not Reportable COVID-19 Eval Order Covid19 at [facility] SARS-CoV-2 (PCR) 12/18/20 12/18/20 12/19/20 16:11 21:23 05:59 WBC 8.54 RBC 4.14 L Hgb 13.0 Hct 38.7 MCV 93.5 MCH 31.4 MCHC 33.6 RDW Std Deviation 52.9 H RDW Coeff of Jeff 15.5 H Plt Count 233 MPV 11.3 H Immature Gran % (Auto) 0.6 Neut % (Auto) 77.6 Lymph % (Auto) 13.5 [place] % (Auto) 8.1 Eos % (Auto) 0.2 Baso % (Auto) 0.0 Neut # (Auto) 6.63 H Lymph # (Auto) 1.15 L [place]hin # (Auto) 0.69 H Eos # (Auto) 0.02 Baso # (Auto) 0.00 Immature Gran # (Auto) 0.05 H PT INR APTT PTT Ratio VBG pH VBG pCO2 VBG pO2 VBG HCO3 VBG O2 Saturation VBG Base Excess Barometric Pressure Sodium Potassium Chloride Carbon Dioxide Anion Gap BUN Creatinine Est Cr Clr Drug Dosing Est GFR ( Amer) Est GFR (Non-Af Amer) BUN/Creatinine Ratio Glucose POC Glucose 265 H Lactate Calcium Magnesium Total Bilirubin AST ALT Alkaline Phosphatase Troponin I Total Protein Albumin Globulin Albumin/Globulin Ratio Beta-Hydroxybutyric Acd Procalcitonin Urine Color Urine Appearance Urine pH Ur Specific Darrow Urine Protein Urine Glucose (UA) Urine Ketones Urine Blood Urine Nitrite Urine Bilirubin Urine Urobilinogen Ur Leukocyte Esterase Urine WBC (Auto) Urine RBC (Auto) U Hyaline Cast (Auto) U Epithel Cells (Auto) Urine Bacteria (Auto) Urine Yeast COVID-19 Eval Order SARS-CoV-2 (PCR) POSITIVE A* 12/19/20 12/19/20 05:59 07:33 WBC RBC Hgb Hct MCV MCH MCHC RDW Std Deviation RDW Coeff of Jeff Plt Count MPV Immature Gran % (Auto) Neut % (Auto) Lymph % (Auto) [place] % (Auto) Eos % (Auto) Baso % (Auto) Neut # (Auto) Lymph # (Auto) [place] # (Auto) Eos # (Auto) Baso # (Auto) Immature Gran # (Auto) PT INR APTT PTT Ratio VBG pH VBG pCO2 VBG pO2 VBG HCO3 VBG O2 Saturation VBG Base Excess Barometric Pressure Sodium 137 Potassium 4.0 Chloride 106 Carbon Dioxide 26 Anion Gap 5.0 BUN 25 H Creatinine 0.80 D Est Cr Clr Drug Dosing 54.3 Est GFR ( Amer) 79.0 Est GFR (Non-Af Amer) 68.2 BUN/Creatinine Ratio 31.7 H Glucose 107 H POC Glucose 93 Lactate Calcium 8.4 L Magnesium Total Bilirubin AST ALT Alkaline Phosphatase Troponin I Total Protein Albumin Globulin Albumin/Globulin Ratio Beta-Hydroxybutyric Acd Procalcitonin Urine Color Urine Appearance Urine pH Ur Specific Darrow Urine Protein Urine Glucose (UA) Urine Ketones Urine Blood Urine Nitrite Urine Bilirubin Urine Urobilinogen Ur Leukocyte Esterase Urine WBC (Auto) Urine RBC (Auto) U Hyaline Cast (Auto) U Epithel Cells (Auto) Urine Bacteria (Auto) Urine Yeast COVID-19 Eval Order SARS-CoV-2 (PCR) Microbiology 12/18/20 12:49 Blood Aerobic Blood Culture - Preliminary No growth in Aerobic bottle after 24 hours. 12/18/20 12:49 Blood Anaerobic Blood Culture - Preliminary No growth in Anaerobic bottle after 24 hours. 12/18/20 13:16 Blood Aerobic Blood Culture - Preliminary No growth in Aerobic bottle after 24 hours. 12/18/20 13:17 Urine,Clean Catch Urine Culture - Preliminary Probable Pseudomonas species Medications Administered Current Inpatient Medications Hydrocodone Bitart/Acetaminophen (Hydrocodone/Acetamophen 5/325mg Tab) 1 tab PO Q6H PRN PRN Reason: pain Stop: 01/01/21 20:01 Ascorbic Acid (Ascorbic Acid 500 Mg Tab) 500 mg PO DAILY JOLENE Stop: 01/18/21 08:59 Last Admin: 12/19/20 07:35 Dose: 500 mg Documented by: Cyanocobalamin (Cyanocobalamin 500 Mcg Tablet (Vitamin B-12)) 500 mcg PO DAILY JOLENE Stop: 01/18/21 08:59 Last Admin: 12/19/20 07:35 Dose: 500 mcg Documented by: Diclofenac Sodium (Diclofenac Sod 1% Gel 100 Gm Tube) 2 gm EXT TID PRN PRN Reason: Pain Stop: 01/17/21 20:01 Diltiazem HCl (Diltiazem Hcl 240 Mg Capcr) 240 mg PO DAILY JOLENE Stop: 01/18/21 08:59 Last Admin: 12/19/20 07:35 Dose: 240 mg Documented by: Fish Oil ([place]-3 (Purified Fish Oil) 1 Gm Cap) 1 gm PO DAILY JOLENE Stop: 01/18/21 08:59 Last Admin: 12/19/20 07:37 Dose: 1 gm Documented by: Folic Acid (Folic Acid 1 Mg Tab) 1 mg PO DAILY JOLENE Stop: 01/18/21 08:59 Last Admin: 12/19/20 07:36 Dose: 1 mg Documented by: Heparin Sodium (Porcine) (Heparin Sod 5,000 Unit/0.5 Ml Vial) 5,000 units SQ Q12 JOLENE Stop: 01/17/21 20:59 Last Admin: 12/19/20 07:38 Dose: 5,000 units Documented by: Ceftriaxone Sodium 2,000 mg/ (Dextrose) 70 mls @ 140 mls/hr IV Q24H JOLENE Stop: 12/29/20 13:59 Insulin Aspart (Insulin Aspart 100 Units/Ml 3 Ml Pen) 0 units SC ACHS JOLENE Stop: 01/17/21 20:59 Last Admin: 12/19/20 09:32 Dose: 2 units Documented by: Insulin Glargine (Insulin Glargine Solostar 100 Units/Ml 3 Ml Pen) 5 units SC BID JOLENE Stop: 01/17/21 20:59 Last Admin: 12/19/20 09:31 Dose: 5 units Documented by: Lisinopril (Lisinopril 5 Mg Tab) 5 mg PO DAILY JOLENE Stop: 01/18/21 08:59 Last Admin: 12/19/20 07:37 Dose: 5 mg Documented by: Methotrexate (Methotrexate Sodium 2.5 Mg Tab) 12.5 mg PO Fr@0900 JOLENE Stop: 01/20/21 08:59 Mirabegron (Mirabegron Er 25 Mg Tab) 25 mg PO HS JOLENE Stop: 01/17/21 21:59 Last Admin: 12/18/20 21:57 Dose: 25 mg Documented by: Pantoprazole Sodium (Pantoprazole 40 Mg Tab) 40 mg PO DAILY JOLENE Stop: 01/18/21 08:59 Last Admin: 12/19/20 07:35 Dose: 40 mg Documented by: Prednisone (Prednisone 5 Mg Tab) 5 mg PO DAILY JOLENE Stop: 01/18/21 08:59 Last Admin: 12/19/20 07:36 Dose: 5 mg Documented by: Simvastatin (Simvastatin 20 Mg Tab) 10 mg PO DAILY JOLENE Stop: 01/18/21 08:59 Last Admin: 12/19/20 07:36 Dose: 10 mg Documented by: Vitamin D (Cholecalciferol 1,000 Units 25 Mcg Tab) 1,000 units PO DAILY JOLENE Stop: 01/18/21 08:59 Last Admin: 12/19/20 07:35 Dose: 1,000 units Documented by: Vitamin E (Tocopheryl, Dl-Alpha 400 Units 180 Mg Cap) 400 units PO DAILY JOLENE Stop: 01/18/21 08:59 Last Admin: 12/19/20 07:37 Dose: 400 units Documented by: PG Care Time/CCT Total # of Minutes Spent Total Time Spent with Patient: Total time spent is greater than 50% in coordination of care (as documented) at patient's floor/unit and/or counseling patient: Coding Level of Care Code 66234 Subseq Hosp Care Lvl 3 Diagnoses Acute UTI N39.0 Pneumonia due to COVID-19 virus U07.1; J12.82 Confusion R41.0 Ambulatory dysfunction R26.2 Type 2 diabetes mellitus with peripheral neuropathy E11.42 Rheumatoid arthritis M06.9 Chronic low back pain M54.5; G89.29
--- NOTE | 2020-12-19 13:20 | Electrocardiogram Report ---
Test Reason : Blood Pressure : / mmHG Vent. Rate : 066 BPM Atrial Rate : 066 BPM P-R Int : 140 ms QRS Dur : 092 ms QT Int : 388 ms P-R-T Axes : 041 -50 040 degrees QTc Int : 406 ms Poor data quality, interpretation may be adversely affected Normal sinus rhythm Left anterior fascicular block Moderate voltage criteria for LVH, may be normal variant Possible Lateral infarct , age undetermined Abnormal ECG When compared with ECG of 14-APR-2017 15:01, Borderline criteria for Lateral infarct are now Present Confirmed by Ulises Fishman ([id number]) on 12/19/2020 1:19:55 PM Referred By: Ponce Winter Confirmed By:Ulises Fishman
[2020-12-19] MEDS ORDERED: cefTRIAXone SODIUM 2,000 MG in DEXTROSE 5% 50 ML IV SCH (14:00)
[2020-12-19] MEDS: CEFEPIME 2,000 MG in SYRINGE 0 ML IV SCH (16:42)
[2020-12-19] MEDS ORDERED: cefTRIAXone SODIUM 1,000 MG in DEXTROSE 5% 50 ML IV SCH (19:45)
[2020-12-19] MEDS: MIRABEGRON ER 25 MG TAB PO SCH (21:21)
[2020-12-20] MEDS: CEFEPIME 2,000 MG in SYRINGE 0 ML IV SCH (03:29)
[2020-12-20] MEDS: HEPARIN SOD 5,000 UNIT/0.5 ML VIAL SQ SCH (08:02)
[2020-12-20] MEDS: lisinopril 5 MG TAB PO SCH (08:02)
[2020-12-20] MEDS: ASCORBIC ACID 500 MG TAB PO SCH (08:03)
[2020-12-20] MEDS: TOCOPHERYL, DL-ALPHA 400 UNITS 180 MG CAP PO SCH (08:03)
[2020-12-20] MEDS: OMEGA-3 (PURIFIED FISH OIL) 1 GM CAP PO SCH (08:03)
[2020-12-20] MEDS: FOLIC ACID 1 MG TAB PO SCH (08:03)
[2020-12-20] MEDS: predniSONE 5 MG TAB PO SCH (08:03)
[2020-12-20] MEDS: CYANOCOBALAMIN 500 MCG TABLET (VITAMIN B-12) PO SCH (08:04)
[2020-12-20] MEDS: PANTOprazole 40 MG TAB PO SCH (08:04)
[2020-12-20] MEDS: dilTIAZem HCL 240 MG CAPCR PO SCH (08:04)
[2020-12-20] MEDS: CHOLECALCIFEROL 1,000 UNITS 25 MCG TAB PO SCH (08:04)
[2020-12-20] MEDS: SIMVASTATIN 20 MG TAB PO SCH (08:05)
[2020-12-20] MEDS: INSULIN GLARGINE SOLOSTAR 100 UNITS/ML 3 ML PEN SC SCH (09:13)
[2020-12-20] MEDS: INSULIN ASPART 100 UNITS/ML 3 ML PEN SC SCH ×2 (09:14→13:01)
[2020-12-20] MEDS ORDERED: CIPROFLOXACIN 500 MG TAB PO SCH (09:15)
--- NOTE | 2020-12-20 13:36 | Discharge Summary ---
Date of Service December 20, 2020 Admission HPI Per Admitting Provider 85yo Female PMH COVID positive 12/07 previously vaccinated, DM2 HTN HLD RA presents to hospital with altered mental status, sent here by her PCP Dr. Winter. Per patient she understands she was hospitalized last week for COVID pneumonia, states the steroids she was given have not helped her, states she is septic and has fluid in her lungs but she will feel better now that she is in the hospital. Patient denies any fever, chills, nausea, vomitting, SOB, urinary incontinence or pain, she has a good appetite. Patient states she lives alone in a [facility] and requires no assistance, ambulates with a cane. While laying in bed, patient decided to sit on the side of the bed to eat dinner and had extreme difficulty moving her legs to position herself and to remain seated upright. Patient blamed the bed for being unstable and states she does not have any difficulty walking, states her last fall was 2 months ago. Per patient's daughter, the patient fell out of bed 12/05 and was not able to get up, was brought to [place] ER and diagnosed with PNA, she was discharged home on antibiotics. On 12/07 the patient began having delirium and was brought back to the ER where she was diagnosed with COVID, started on steroids, she did not require oxygen, was discharged on 12/09 with home steroids. Patient's family checks in on her multiple times per day, state her confusion has gotten worse, she is unable to manage or take her medication regularly, still has great difficulty walking by herself and gets easily short of breath, has been sleeping more often, and may not be drinking water as regularly, though they note no change in appetite. They state patient has occasional urinary incontinence at baseline. Patient's daughter believes her symptoms may be due to a UTI as her current confusion is similar to her previous UTI. The family scheduled an appointment with Dr. Winter to evaluate patient for confusion, after which she was sent here. Principal Diagnosis Dehydration causing acute kidney injury UTI, Pseudomonas Discharge Exam General: well developed, well nourished, elderly female, no distress Neck: supple, trachea midline, normal thyroid Lungs: clear to auscultation bilaterally, normal respiratory effort, no accessory muscle use, no distress Heart: regular S1 and S2, no murmur, peripheral pulses normal, capillary refill normal, no edema Abdomen: soft, NT, ND, + BS, no hepatomegaly, normal to percussion Extremities: normal in appearance, no cyanosis, no petechiae, strength is 5/5 b ilaterally Neuro: awake, cooperative, moves all extremities, no focal motor deficits, CN II-XII intact, sensation in extremities intact, normal speech Skin: warm, dry, no rash, normal turgor Psych: Awake, alert oriented x 3, euthymic affect Discharge Data Allergies Allergy/AdvReac Type Severity Reaction Status Date / Time No Known Drug Allergies Allergy Verified 12/18/20 16:00 Consultations 12/18/20 15:30 ED Decision to Admit Stat Ordered Studies 12/18/20 12:22 CT angio chest PE protocol Stat 12/18/20 12:23 CT head/brain wo con Stat Hospital Course (1) Acute UTI: 85yo Female PMH COVID positive 12/07 previously vaccinated, DM2 HTN HLD RA presents to hospital with altered mental status likely secondary to UTI. Acute UTI -UA +1 bacteria +2 leukocyte Esterase -Urine culture: Pseudomonas, treated with Cefepime starting on 12/19 will discharge on Cipro 500mg BID x 11 more doses, she says she has tolerated Cipro before -blood culture: no growth BEATA, dehydration - received 3 liters of fluid in the ED, eating and drinking better, not great - give 500cc more fluid on 12/19 - Cr improved to 0.8, making a lot of urine BEATA resolved, drinking well, knows to stay well hydrated on discharge COVID-19 -PCR COVID positive -initial positive test was 12/07 at [place] -no hypoxia, no need for dexamethasone, lungs clear, normal CXR can come out of isolation on discharge to home Confusion -likely due to dehydration, BEATA, UTI, recent COVID infection, much better for 48 hours, oriented and cooperative, minimal short term memory issues -CT head no acute hemorrhage ischemia -CTA chest = cardiomegaly, multifocal groundglass consolidation in both lungs consistent with viral PNA, thyroid goiter, no central pulmonary embolism -CXR no acute chest disease Ambulatory Dysfunction -order fall precautions -order PT/OT: did great, walked 70 feet with walker, independent with ADL, safe to go home likely her weakness was due to profound dehydration coupled with UTI DM2 -glucose 346, may be part due to home steroids and medication noncompliance secondary to confusion - sugars better on Novolog SS - resume Glimepiride and Metformin on discharge Rheumatoid Arthritis -continue home medication methotrexate, prednisone Chronic Low Back Pain -continue home medication hydrocodone acetominophen HTN -continue diltiazem, lisinopril HLD -continue simvastatin Overactive Bladder -continue mirabegron GERD -continue protonix FENa: card consistent Code Status: full DVT PPX: heparin 5000U 2x daily PT/OT: ordered (2) Pneumonia due to COVID-19 virus: (3) Confusion: (4) Ambulatory dysfunction: (5) Type 2 diabetes mellitus with peripheral neuropathy: (6) Rheumatoid arthritis: (7) Chronic low back pain: Total Time Total Time Spent Total Time Spent (In Minutes): 35 Total Time Includes: Examination of the Patient, Discharge Planning, Medication Reconciliation and Other (spoke with patient's daughters) Discharge Plan Discharge Items Patient Disposition: Home - Self-Care Reason For Visit: UTI Discharge Diagnosis: Dehydration, acute kidney injury UTI - Pseudomonas Weakness, due to dehydration and UTI COVID 19 - fully recovered Condition on Discharge: Good Goals: stay well nourished and well hydrated complete a course of Ciprofloxacin for UTI Activity: Resume your previous activity Bathing: No limitations Driving/Machine Use: wait until follow up Weightbearing: Full weightbearing Follow-up/Referrals: Ponce Winter MD [Primary Care Provider] - 12/28/20 11:30 am () Diet: Carb Consistent or DM2 Addtl Attending Provider Instructions: Medications: - CIPROFLOXACIN: 500mg twice a day for 5 more days (technically 11 more doses) start taking tonight Weakness, dehydration, acute kidney injury, UTI (Pseudomonas) marked improvement after 3.5 liters of IV fluids, now eating and drinking better renal function back down to baseline, making urine treated infection with Cefepime IV, change to Cipro this morning, finish course at home patient walked 70 feet with rolling walker, fully independent with transfers and walking, no issues with balance likely that her profound dehydration lead to her weakness and inability to walk at home she is no longer contagious for COVID 19, she has been stable on room air while here, chest x-ray shows no signs of pneumonia stay well nourished and well hydrated try to drink 1.5 liters of fluid a day, can be water, tea, juice, coffee dehydration is what made you come to the hospital, it can be difficult but force yourself to stay well hydrated Pending Studies at Discharge: No Stand-Alone Forms: My [facility], Smoking Cessation Medications and DC Order Prescriptions: New ciprofloxacin HCl 500 mg Tablet 500 mg PO BID 5 Days Qty: 11 RF: 0 Continued (DME) blood-glucose meter [OneTouch Ultra2 Meter] misc See Dose Instructions .ROUTE .MEDSUPPLY Qty: 1 RF: 0 lisinopril 5 mg tablet 5 mg PO DAILY Qty: 90 RF: 3 Myrbetriq 25 mg tablet extended release 24 hr 25 mg PO DAILY Qty: 90 RF: 3 prednisone 5 mg tablet 5 mg PO DAILY Qty: 90 RF: 3 diltiazem HCl 240 mg capsule,extended release 24hr 240 mg PO DAILY Qty: 90 RF: 3 folic acid 1 mg tablet 1 mg PO DAILY Qty: 90 RF: 3 glimepiride 4 mg tablet 4 mg PO DAILY Qty: 90 RF: 3 ascorbate calcium (vitamin C) 500 mg tablet 500 mg PO DAILY Qty: 30 RF: 0 Prolia 60 mg/mL syringe 60 mg subcut .COMPLEX RF: 0 diclofenac sodium [Arthritis Pain (diclofenac)] 1 % gel 2 g topical TID PRN (Reason: Pain) RF: 0 omega-3 fatty acids [Fish Oil Concentrate] 1,000 mg capsule 1,000 mg PO DAILY RF: 0 (DME) cane, single pronged Qty: 1 RF: 0 hydrocodone-acetaminophen 5-325 mg tablet 1 tab PO Q6H PRN (Reason: pain) Qty: 100 RF: 0 simvastatin 20 mg tablet 20 mg PO DAILY Qty: 90 RF: 3 (DME) OneTouch Ultra Blue Test Strip strip See Dose Instructions .ROUTE .MEDSUPPLY Qty: 50 RF: 5 cyanocobalamin (vitamin B-12) 500 mcg tablet 500 mcg PO DAILY Qty: 90 RF: 3 methotrexate sodium 2.5 mg tablet 12.5 mg PO WEEKLY Qty: 60 RF: 3 vitamin E succinate 400 unit tablet 400 units PO DAILY Qty: 90 RF: 3 aspirin [Aspirin Low Dose] 81 mg Tablet,Delayed Release (Dr/Ec) 81 mg PO DAILY RF: 0 Xiidra 5 % dropperette 0 drp ophthalmic (eye) UD RF: 0 calcium phos-vit D3-mag oxide 600 mg calcium- 500 unit-50 mg Tablet 1 tab PO DAILY RF: 0 Premarin 0.625 mg/gram cream 1 applic PV DAILY RF: 0 leucovorin calcium 5 mg tablet 5 mg PO WEEKLY RF: 0 pantoprazole [Protonix] 40 mg Tablet,Delayed Release (Dr/Ec) 40 mg PO DAILY RF: 0 cholecalciferol (vitamin D3) [Vitamin D3] 25 mcg (1,000 unit) Capsule 25 mcg PO DAILY RF: 0 metformin 1,000 mg tablet 1,000 mg PO BIDM RF: 0 Discharge Orders: Discharge Order (Routine); Ordered 12/20/20 Ordered By: Davin Beltre/Other Patient Handouts: High Blood Sugar (Hyperglycemia), Hypoglycemia (Low Blood Sugar), Managing Type 2 Diabetes Admission Data Admit Date/Time: 12/19/20 14:44 Attending Provider: Davin Medellin Admit Provider: Malika Yoo Primary Care Provider: Ponce Winter Other Providers: Maikol Marie Other Interventions: Discharge Summary Assessment (RN) Last Done: 12/20/20 13:33 Coding Level of Care Code D/C DAY MANAGEMENT >30 MINS Diagnoses Acute UTI N39.0 Pneumonia due to COVID-19 virus U07.1; J12.82 Confusion R41.0 Ambulatory dysfunction R26.2 Type 2 diabetes mellitus with peripheral neuropathy E11.42 Rheumatoid arthritis M06.9 Chronic low back pain M54.5; G89.29
[2020-12-21] MEDS ORDERED: metHOTREXate sodium 2.5 MG TAB PO SCH (09:00)
== END 2020-12-20 16:00 | disposition home or self-care (01) | DRG 689 ==
LOC: 3W 12:06 → ED 12:06 → SUATTDRO 17:55 → 3W 19:37